=== PATIENT | female | born 1945 | race Caucasian/White ===

== ENCOUNTER → 2016-11-30 | Outpatient (CLI) | payer OTHER, MEDICAID ==
--- NOTE | 2016-11-30 14:11 | MR ---
MRI of the Head Clinical Indication: Seizures, G40.909 Technique: T1-weighted images were acquired axially and sagittally from the foramen magnum to the ve rtex. Fast inversion recovery, fast T2-weighted, and diffusion-weighted axial images were obtained. Comparison: MRI December 18, [address] August 30, 2016 Findings: There is a new 4.5 mm T2 hyperintense , isovolumic, lesion involving the lateral anterior insular cortex of the left temporal lobe (image 9., Series 7). A few other microvascular ischemic changes in the supratentorium are stable and no oth er new lesions are identified. The posterior fossa remains normal. No hemorrhage, mass lesion or acute infarction. Ventricles and subarachnoid spaces are normal. Appr opriate voids of signal are found within the major vessels of the [place]. Contents of the posterior fossa are nicely displayed and are normal. No fluid in the paranasal sinuses. The cranioc ervical junction is normal. Impression: New small, nonspecific, left insular cortex lesion. This is in an atypical position for t he typical microvascular ischemic change seen in elderly patients. Recommend MRI with IV contrast and MRA for further evaluation.
== END ==
LOC: FIMAGING 13:05
PROVIDERS: ATTEND Psychiatry & Neurology Neurology
DX: G40.909 Epilepsy, unspecified, not intractable, without status epilepticus (principal)

== ENCOUNTER → 2016-12-11 | Outpatient (CLI) | payer OTHER, MEDICAID ==
[~2016-12-11] MED LIST: GADOBUTROL 10 ML VIAL IVP ONE
[2016-12-11 10:38] LABS: CREATININE 0.7 mg/dL (0.6-1.0); GLOMERULAR FILTRATION RATE > 60
--- NOTE | 2016-12-11 14:29 | MR ---
MRI Brain Postcontrast History: Focal left insular white matter lesion. Technique: After intravenous administration of 6 mL Gadavist, postcontrast enhanced imaging is obtain ed in three planes. Comparison Study: November 30, 2016. Findings: After contrast administration, the brain enhances unremarkably. Specifically, the white mat ter lesion within the left temporal lobe white matter does not enhance abnormally suggesting this may represent a focal area of microvascular ischemic gliosis. No masses. No intracranial hemorrhage. Impression: The brain enhances normally after intravenous contrast administration. The left temporal white matter lesion most likely represents an additional focus of white matter microvascular ischemic disease.
== END ==
LOC: FIMAGING 09:48
PROVIDERS: ATTEND Psychiatry & Neurology Neurology
DX: R90.82 White matter disease, unspecified (principal)
CPT/HCPCS: 70552; A9585

== ENCOUNTER → 2016-12-30 | Outpatient (CLI) | payer OTHER ==
--- NOTE | 2016-12-30 16:29 | MR ---
MRI of the Lumbar Spine (Without Contrast) at 1424 hours Clinical Indications: Back pain, left leg radiculopathy. M54.5. Technique: Sagittal and axial T1 and T2 and sagittal STIR MR sequences of the lumbar spine without co ntrast. Axial imaging from T10 through S1. Findings: Lumbar vertebral bodies are of normal height without compression fractures. Conus medulla ris appears normal and ends at L1-L2. T10-T11: Severe degenerative disk disease, circumferential disk bulge and osteophytes and mild bilate ral facet arthropathy resulting in mild central canal stenosis and mild to moderate right neural fora lenin stenosis. T11-T12: Severe degenerative disk disease with circumferential disk bulge and osteophytes and moderat e bilateral facet arthropathy resulting in moderate central canal stenosis and mild to moderate right neural foraminal stenosis. T12-L1: Severe degenerative disk disease with endplate diskogenic changes, circumferential disk bulge and osteophytes and moderate bilateral facet arthropathy resulting in mild central canal stenosis an d mild to moderate left neural foraminal stenosis. L1-L2: Mild degenerative disk disease, mild disk bulge and moderate bilateral facet arthropathy witho ut central canal or neural foraminal stenosis. L2-L3: Moderate degenerative disk disease, circumferential disk bulge, moderate loss of disk height, and moderate bilateral facet arthropathy resulting in mild central canal stenosis without neural fora lenin stenosis. L3-L4: Severe degenerative disk disease, moderate loss of disk height, severe bilateral facet arthrop athy, degenerative grade 1 anterolisthesis, circumferential disk bulge and osteophytes, resulting in moderate to severe central canal stenosis and mild to moderate bilateral neural foraminal stenosis. L4-L5: Severe degenerative disk disease with endplate diskogenic changes, severe loss of disk height, circumferential disk bulge and osteophytes and severe bilateral facet arthropathy resulting in moder ate central canal stenosis and moderate to severe right neural foraminal stenosis. L5-S1: Severe degenerative disk disease, moderate loss of disk height, endplate diskogenic changes, s evere bilateral facet arthropathy, degenerative grade 1 anterolisthesis 5 mm, circumferential disk bu lge, resulting in moderate to severe bilateral neural foraminal stenosis and mild central canal steno sis. Impression: 1. Multilevel moderate to severe degenerative disk disease from T10-T11 through L5-S1 with associated disk bulge and osteophytes and multilevel moderate to severe bilateral neural foraminal stenosis res ulting in mild to moderate central canal stenosis from T10-T11 through T12-L1, and moderate to severe central canal stenosis at L3-L4 and L4-L5, with multilevel variable bilateral neural foraminal steno sis, worst at the L5-S1 level. 2. L5-S1 degenerative grade 1 anterolisthesis, severe degenerative disk disease and severe bilateral facet arthropathy resulting in moderate to severe bilateral neural foraminal stenosis and mild centra l canal stenosis. 3. L3-L4 and L4-L5 moderate to severe central canal stenosis secondary to severe degenerative disk di sease with disk bulge and osteophytes and bilateral facet arthropathy with superimposed degenerative anterolisthesis at L3-L4 and degenerative retrolisthesis at L4-L5. 4. Consider flexion and extension lateral plain film views to rule out instability. 5. Please see above findings at specific disk levels.
== END ==
LOC: FIMAGING 13:58
PROVIDERS: ATTEND Physician Assistant Medical
DX: M54.5 Low back pain (principal); M79.605 Pain in left leg; M51.34 Other intervertebral disc degeneration, thoracic region; M51.37 Other intervertebral disc degeneration, lumbosacral region; M48.05 Spinal stenosis, thoracolumbar region; M48.06 Spinal stenosis, lumbar region; M43.17 Spondylolisthesis, lumbosacral region; M25.78 Osteophyte, vertebrae

== ENCOUNTER → 2017-06-29 | Outpatient (CLI) | payer OTHER | LOC: FIMAGING 09:32 | PROVIDERS: ATTEND Neurological Surgery | DX: M43.17 Spondylolisthesis, lumbosacral region (principal); M51.36 Other intervertebral disc degeneration, lumbar region; M51.37 Other intervertebral disc degeneration, lumbosacral region; M48.06 Spinal stenosis, lumbar region; M99.73 Connective tissue and disc stenosis of intervertebral foramina of lumbar region ==

== ENCOUNTER 2017-08-03 09:58 | Day surgery (SDC) | payer OTHER ==
[2017-08-03] MEDS ORDERED: LIDOCAINE 1% 300 MG/30 ML SDV SC ONE (10:04)
--- NOTE | 2017-08-03 10:54 | PDGENHP ---
History & Physical Chief Complaint: Linq removal. History of Present Illness: LINQ placed given history of syncope. Ultimately diagnosed with a seizure disorder. Pertinent Past, Social, Family History: None. Relevant Physical Exam: RRR no MGR. Lungs clear
--- NOTE | 2017-08-03 12:41 | CPIP ---
[f rep st] INVASIVE CARDIAC PROCEDURE DATE OF PROCEDURE: 08/03/2017 INDICATIONS: The patient is 72 years old and has a history of syncope. She had a LINQ placed in past, given her history of cryptogenic syncope. Recently, she was diagnosed with a seizure disord er as the etiology for her syncope. As a result, she is referred for a LINQ removal. PROCEDURE: Removal of a [employer]tronic LINQ. TECHNIQUE: Following informed consent, and in the fasting state, the patient was brought to the C[facility] . The left chest was prepped and draped in usual sterile fashion. 1% lidocaine was infiltrated in the skin overlying the previously placed LINQ. Using the 15 blade, a 1 cm incision was made. The L INQ was identified. The capsule was opened sharply, and the LINQ delivered from the pocket. Two st aples were placed to close the skin. Manual pressure was held, and a dry dressing was placed. COMPLICATIONS: None. DISPOSITION: The patient will be recovered in the CVC and discharged home later today. /[id number]/MODL
== END 2017-08-03 11:30 | disposition home or self-care (01) ==
LOC: FCATH 09:58
PROVIDERS: ATTEND Internal Medicine Cardiovascular Disease
PROC: 0JPT02Z Removal of Monitoring Device from Trunk Subcutaneous Tissue and Fascia, Open Approach (ICD-10-PCS; principal; 2017-08-03)
DX: Z45.09 Encounter for adjustment and management of other cardiac device (principal); R55 Syncope and collapse; G40.909 Epilepsy, unspecified, not intractable, without status epilepticus

== ENCOUNTER 2017-08-12 05:46 | Inpatient (IN) | payer OTHER ==
[2017-08-12] MEDS ORDERED: morphINE PF 5 MG/10 ML INJ IT ONE (06:05)
[2017-08-12] MEDS ORDERED: ceFAZolin 2 GM/DEXTROSE 100 ML IV ONE (06:05)
[2017-08-12] MEDS ORDERED: morphINE SR 15 MG TAB PO ONE (06:05)
[2017-08-12] MEDS ORDERED: ACETAMINOPHEN 500 MG TAB PO ONE (06:05)
[2017-08-12] MEDS ORDERED: GABAPENTIN 300 MG CAP PO ONE (06:05)
[2017-08-12] MEDS ORDERED: LR 1,000 ML IV ONE (06:06)
[2017-08-12] MEDS ORDERED: LIDOCAINE 1% 2 ML INJ ID PRN (06:06)
[2017-08-12] MEDS ORDERED: CITRATE DEXTROSE SOLN 500 ML BAG ONE ×2 (06:39→07:58)
[2017-08-12] MEDS ORDERED: BUPIVACAINE 0.25% 30 ML SDV ONE (06:39)
[2017-08-12] MEDS ORDERED: THROMBIN (BOVINE) 20,000 UNIT VIAL TP ONE (06:41)
[2017-08-12] MEDS ORDERED: CHLORHEXIDINE GLUC HIBICLENS 118 ML BTL TP ONE (06:41)
[2017-08-12] MEDS ORDERED: BACITRACIN 50,000 UNITS/10 ML SYR IRR ONE (06:42)
--- NOTE | 2017-08-12 06:58 | PDHPUP ---
History & Physical Update H&P update statement: This history and physical update is based on an assessment of the patient which was completed after admission or registration (within 24 hours), but prior to the surgery/procedure. H&P update: H&P reviewed & patient examined, no change in patient's condition since H&P completed (Consents signed and site marked for surgery.)
[2017-08-12] MEDS ORDERED: DEXAMETHASONE 4 MG/ML VIAL ONE (07:02)
[2017-08-12] MEDS ORDERED: MIDAZOLAM 2 MG/2 ML VIAL ONE (07:02)
[2017-08-12] MEDS ORDERED: ROCURONIUM 50 MG/5 ML VIAL ONE (07:02)
[2017-08-12] MEDS ORDERED: PROPOFOL/EMULSION 500 MG/50 ML BOTTLE IV ONE ×2 (07:02→09:24)
[2017-08-12] MEDS ORDERED: LIDOCAINE 2% 100 MG/5 ML SYR ONE (07:03)
--- NOTE | 2017-08-12 08:23 | PDANEPAE ---
ANE Past Medical History - Cardiovascular History Hx Hypertension: No Hx Arrhythmias: No Hx Chest Pain: No Hx Coronary Artery / Peripheral Vascular Disease: No Hx CHF / Valvular Disease: No Hx Palpitations: No Cardiovascular History Comment: HAD [employer] LOOP RECORDER. PLACED 05/2016 PLANS ON GETTING REMOVED - Pulmonary History Hx COPD: No Hx Asthma/Reactive Airway Disease: No Hx Recent Upper Respiratory Infection: No Hx Oxygen in Use at Home: No Hx Sleep Apnea: No Sleep Apnea Screening Result - Last Documented: Negative - Neurologic History Hx Seizures: Yes Neurologic History Comment: ELIPEPSY - Endocrine History Hx Diabetes: No - Renal History Hx Renal Disorders: Yes Renal History Comment: STRESS INCONT.USES PADS - Liver History Hx Hepatic Disorders: No - Neurological & Psychiatric Hx Hx Neurological and Psychiatric Disorders: No - Cancer History Hx Cancer: No - Congenital Disorder History Hx Congenital Disorders: No - GI History Hx Gastrointestinal Disorders: No - Other Health History Other Health History: PERIPHERAL NEUROPATHY. LUMBAR STENOSIS - Chronic Pain History Chronic Pain: Yes (LT BUTTOCKS DOWN TO ANKLE) - Surgical History Prior Surgeries: BRO CATARACT. LT SHLDR SCOPE. RT KNEE SCOPE. HYSTERECTOMY. LT ANKLE ORIF. TONSILLECTOMY ANE Review of Systems Review of Systems: - Exercise capacity METS (RN): 6 METS - Pacemaker Pacemaker Mode: DVI ANE Patient History - Allergies Allergies/Adverse Reactions: No Known Allergies Allergy (Verified 07/30/17 16:51) - Home Medications Home Medications: DULoxetine [Cymbalta 30 MG (*)] 30 mg PO BID 06/08/16 [Last Taken 08/12/17] Herbals/Supplements -Info Only 1 ea PO DAILY 06/08/16 [Last Taken 08/05/17] levETIRAcetam [Keppra Xr] 1,000 mg PO DAILY 09/03/16 [Last Taken 08/12/17] Ascorbic Acid [Vitamin C 500 mg (*)] 1,000 mg PO DAILY 07/15/17 [Last Taken 06/14] Docusate Sodium [Stool Softener] 50 mg PO HS 07/15/17 [Last Taken 08/10/17] Multivitamin with Minerals [Multiple Vitamin] 1 each PO DAILY 07/15/17 [Last Taken 08/05/17] Montgomery-3 Fatty Acids [Fish Oil 1000 mg (*)] 1,000 mg PO DAILY 07/15/17 [Last Taken 08/05/17] lamoTRIgine [LamICTAL 100 MG (*)] 100 mg PO DAILY 07/15/17 [Last Taken 08/12/17] levETIRACETAM [Keppra Xr] 500 mg PO HS 07/15/17 [Last Taken 08/12/17] traMADol [Ultram 50 mg (*)] 50 mg PO BID@16,21 PRN 07/15/17 [Last Taken 08/08/17 ] - NPO status NPO Since - Liquids (Date): 08/11/17 NPO Since - Liquids (Time): 20:00 NPO Since - Solids (Date): 08/11/17 NPO Since - Solids (Time): 20:00 - Smoking Hx Smoking Status: Never smoked ANE Labs/Vital Signs - Vital Signs Blood Pressure: 113/74 Heart Rate: 64 Respiratory Rate: 16 O2 Sat (%): 97 Height: 165.1 cm Weight: 62.596 kg ANE Physical Exam - Airway Neck exam: FROM Mallampati Score: Class 2 Mouth exam: normal dental/mouth exam - Pulmonary Pulmonary: no respiratory distress - Cardiovascular Cardiovascular: regular rate and rhythym - ASA Status ASA Status: II (right handed, allens 3-5 seconds) ANE Anesthesia Plan Anesthesia Plan: general endotracheal anesthesia Lines/Monitors: arterial line Urgent/Emergent Case: Radha noyola completed preop but documented later for safe timely pt care (JERMAIN discussed as risk)
[2017-08-12] MEDS ORDERED: SUGAMMADEX SODIUM 200 MG/2 ML VIAL IVP ONE (11:14)
[2017-08-12] MEDS ORDERED: NALOXONE HCL 0.4 MG/ML INJ IVP PRN (12:10)
[2017-08-12] MEDS ORDERED: MEPERIDINE 25 MG/ML SYR IVP PRN (12:10)
[2017-08-12] MEDS ORDERED: ALBUTEROL 3 ML DEYVIAL IH PRN (12:10)
[2017-08-12] MEDS ORDERED: ONDANSETRON 4 MG/2 ML VIAL IVP PRN ×2 (12:10→12:39)
[2017-08-12] MEDS ORDERED: LR 500 ML IV PRN (12:10)
--- NOTE | 2017-08-12 12:10 | POSTANESTH ---
Post Anesthetic Evaluation Cardiovascular Status: Normal, Stable Respiratory Status: Normal, Stable Level of Consciousness/Mental Status: Can Participate in Eval Pain Control: Adequate, Prn Tx Ordered Nausea/Vomiting Control: Adequate, Prn Tx Ordered Complications Possibly Related to Anesthesia: None Noted
[2017-08-12] MEDS ORDERED: fentaNYL 100 MCG/2 ML INJ ONE ×2 (12:15→12:33)
[2017-08-12] MEDS: fentaNYL 100 MCG/2 ML INJ IVP PRN ×4 (12:18→12:49)
[2017-08-12] MEDS ORDERED: diphenhydrAMINE 25 MG CAP PO PRN (12:39)
[2017-08-12] MEDS ORDERED: MAGNESIUM HYDROXIDE 30 ML UDCUP PO PRN (12:39)
[2017-08-12] MEDS ORDERED: BISACODYL 10 MG SUPP PR PRN (12:39)
[2017-08-12] MEDS ORDERED: PROMETHAZINE HCL 25 MG/ML INJ IVP PRN (12:39)
[2017-08-12] MEDS ORDERED: ONDANSETRON DISINTEGRATING 4 MG TAB PO PRN (12:39)
[2017-08-12] MEDS ORDERED: DIAZEPAM 10 MG/2 ML SYR IVP PRN (12:39)
[2017-08-12] MEDS ORDERED: POLYETHYLENE GLYCOL 3350 17 GM PKT PO PRN (12:39)
[2017-08-12] MEDS ORDERED: LACTULOSE 20 GM/30 ML UDCUP PO PRN (12:39)
--- NOTE | 2017-08-12 12:47 | POSTOPPROG ---
Post Op Note Date of Operation: 08/12/17 Surgeon: Atul Jordan Educational Consultant: Nixon Lewis PA-C Anesthesiologist: Pia Anesthesia: GET(General Endotracheal) Pre-op Diagnosis: lumbar stenosis Post-op Diagnosis: same Indication: nerve compression Procedure: L3-5 laminectomy, L3/4/5/S1 TLIFs, L3-S1 posterior fusion Findings: Please see dictation Inf/Abcess present in the surg proc area at time of surgery?: No Depth: Organ Space EBL: 100-500 Complications: none Drains: Rafiq Irvin Specimen(s): none PA Addendum - Addendum .: S: Pt resting in bed, c/o back pain and spasms O: Awake but groggy NAD VSS MAEx4 Motor 5/5 BUE/BLE with exception of L DF/PF 5-/5 poor effort Incision dressed cdi JPx1 Fierro A: 72 yo F s/p L3-5 laminectomy, L3/4/5/S1 TLIFs, L3-S1 posterior fusion P: PT/OT TEDs, SCDS, lovenox POD#1 Pain management Brace when OOB Post op xrays pending SURAJ fierro in AM Follow KENTRELL output Call NS with any issues D/w Dr Jordan
[2017-08-12] MEDS: NS 1,000 ML IV SCH (14:32)
[2017-08-12] MEDS: ceFAZolin 2 GM/DEXTROSE 100 ML IV SCH ×2 (14:35→21:10)
[2017-08-12] MEDS: ACETAMINOPHEN 500 MG TAB PO SCH ×2 (14:41→21:08)
--- NOTE | 2017-08-12 14:46 | GOP ---
[f rep st] OPERATIVE REPORT DATE OF OPERATION: 08/12/2017 SURGEON: Atul Jordan MD ANDROID DEVELOPER: MIMI Carpio. PREOPERATIVE DIAGNOSIS: 1. L3 through S1 lumbar spondylosis, with severe spinal stenosis at L3 through L5. 2. Lateral recess and foraminal stenosis, left-sided at L3-L4, L4-L5, and L5- S1. 3. Low back pain. 4. Lower extremity radiculopathy and weakness. 5. Treatment refractory to nonoperative intervention. POSTOPERATIVE DIAGNOSIS: 1. L3 through S1 lumbar spondylosis, with severe spinal stenosis at L3 through L5. 2. Lateral recess and foraminal stenosis, left-sided at L3-L4, L4-L5, and L5- S1. 3. Low back pain. 4. Lower extremity radiculopathy and weakness. 5. Treatment refractory to nonoperative intervention. 6. Duplicate left-sided L5 nerve. PROCEDURE PERFORMED: 1. Posterior arthrodesis with approach to L3, L4, L5, and S1. 2. Posterolateral fusion with bilateral pedicle screw placement into L3, L4, L5 , and S1 from the StarsVu 4.75 system. 3. Posterolateral fusion on the right between L3 and S1, with morselized autograft and allograft. 4. Decompressive laminectomy with bilateral medial facetectomies at L3-L4 and L4-L5. 5. Left-sided L5-S1 facetectomy with foraminotomy and nerve root decompression. 6. Right-sided L5-S1 hemilaminotomy with facetectomy, foraminotomy, and nerve root decompression. 7. Left-sided L3-L4 transforaminal lumbar interbody fusion with a 7 x 23 mm titanium PEEK elevate cage filled with morselized autograft and allograft. 8. Left-sided L4-L5 transforaminal lumbar interbody fusion with a 7 x 22 mm titanium-coated PEEK cage filled with morselized autograft and allograft. 9. Right-sided L5-S1 transforaminal lumbar interbody fusion with a 7 x 23 mm titanium PEEK elevated cage filled with morselized autograft and allograft. 10. Use of intraoperative 3D Stealth navigation. 11. Use of intraoperative fluoroscopy, less than 1 hour physician time. 12. Use of neuromonitoring. 13. Use of the operating microscope. 14. Injection of preservative-free intrathecal narcotics. FINDINGS: per imaging with a duplicate nerve at the left L5/S1 foramen SPECIMENS: None. INDICATIONS: The patient is a 72-year-old woman who, unfortunately, was suffering a left lower extremity radiculopathy and had evidence of weakness. She had evidence of spondylosis, with severe spinal stenosis L3 through L5, and severe bilateral lateral recess foraminal stenosis at L5-S1. After failing nonoperative interventions, after discussion of risks, benefits, and treatment alternatives, we decided to proceed forth with surgery as described above. DESCRIPTION OF PROCEDURE: The patient was brought to the operating theater and underwent general endotracheal anesthesia without complications. She had Venodynes, RICO hose, and appropriate lines placed by Anesthesia. She was flipped prone onto the Rafiq table, and all bony processes inspected and padded. The lower lumbar region was prepped and draped in the usual sterile surgical fashion. A time-out was completed per protocol, and the patient received antibiotics within 1 hour of incision. Using lateral fluoroscopy and a spinal needle, we picked our entry point to the L3 through S1 levels. This was marked in the midline, and the incision was infiltrated with Marcaine with epinephrine. The incision was taken down with the scalpel blade and, using the monopolar, taken down the midline through the lumbar dorsal fascia, and subperiosteal dissection carried out to the transverse process of L3, L4, L5, and S1 bilaterally. Care was taken to preserve the L2-3 facet joint. Deep retractors placed to maintain our exposure. We attached the 3D Stealth navigation clamp to the spinous process of L5 and completed a 3D Stealth navigation spin. Using 3D Stealth navigation, we placed pilot boat deckhand holes for the bilateral pedicle screws into L3, L4, L5, and S1. All holes were manually palpated with evidence of any cortical breaches. We then tapped and placed 6.5 x 55 mm screws bilaterally at L3 and L4, and 6.5 x 50 mm screws bilaterally in L5, and 6.5 x 35 mm screws bilaterally in S1. Another 3D Stealth navigation spin demonstrated good placement of the hardware. At this point, we used a combination of the bur tip on the drill bit, Kerrison punches, and Leksell rongeur to complete a decompressive laminectomy with bilateral medial facetectomies, L3-L4 and L4-L5. We resected the pars on the left side between L3-4, L4-5, and also completed a left-sided L5-S1 hemilaminotomy with facetectomy. When we resected the pars and facet on the left side off L5-S1, we noted the patient had likely a duplicate nerve, and therefore we were not going to be able to complete the TLIF from this side and acces the discectomy. I therefore completed a right-sided L5-S1 hemilaminotomy with facetectomy and foraminotomy. We moved up to the left-sided L3-4 level, where we completed a left-sided L3-4 diskectomy. We prepared the cartilaginous endplates and measured interbody space. We then placed a 7 x 23 mm titanium PEEK elevate cage filled with morselized autograft and allograft, anteriorly toward the midline. We packed additional morselized autograft into the disk space for the interbody fusion, and then moved down to L4-5, where we completed a left-sided L4-5 diskectomy. We prepared the cartilaginous endplates and measured interbody space. We then placed a 7 x 22 mm titanium-coated PEEK cage filled with morselized autograft and allograft anteriorly toward the midline. We packed additional morselized autograft into the disk space interbody fusion. We then moved on to L5-S1 and moved to the right side, where we completed a right-sided L5-S1 diskectomy. We prepared the cartilaginous endplates and measured the interbody space. We placed a 7 x 23 mm titanium PEEK elevate cage filled with morselized autograft and allograft anteriorly toward the midline. We packed additional morselized autograft into the disk space for the interbody fusion. We decorticated the bone on the right side, between L3 and S1 for the posterolateral fusion. We injected preservative-free intrathecal narcotics and left a drain in the subfascial space. The wound was then closed in multiple layers, using Vicryl sutures in deep layers, and Dermabond for the skin. The patient's wounds were dressed sterilely. She was flipped supine onto the transfer cart. She was awakened, extubated, and taken to the recovery room in stable condition. There were no complications and no noted changes on neuromonitoring throughout the procedure. COMPLICATIONS: None. /[id number]/MODL MTDD
[2017-08-12] MEDS: oxyCODONE IR 5 MG TAB PO PRN (16:00)
[2017-08-12] MEDS: POLYETHYLENE GLYCOL 3350 17 GM PKT PO SCH ×2 (16:19→21:19)
[2017-08-12] MEDS: FAMOTIDINE 20 MG TAB PO SCH (21:08)
[2017-08-12] MEDS: SENNOSIDES/DOCUSATE SODIUM TAB PO SCH (21:08)
[2017-08-12] MEDS: levETIRAcetam 500 MG TAB PO SCH (21:09)
[2017-08-12] MEDS: DULoxetine 30 MG CAP PO SCH (21:09)
[2017-08-12] MEDS: DOCUSATE SODIUM 100 MG CAP PO SCH (21:18)
[2017-08-13] MEDS ORDERED: NS BOLUS 500 ML (Wide open) IV ONE (01:00)
[2017-08-13] MEDS: oxyCODONE IR 5 MG TAB PO PRN ×4 (04:18→21:20)
[2017-08-13] MEDS: METHOCARBAMOL 750 MG TAB PO PRN ×3 (04:19→15:47)
[2017-08-13] MEDS: ACETAMINOPHEN 500 MG TAB PO SCH ×3 (05:24→21:20)
[2017-08-13] MEDS: NS 1,000 ML IV SCH (05:29)
--- NOTE | 2017-08-13 07:40 | NEUSURGPN ---
Date of Surgery: 08/12/17 Post Op Day: 1 Assessment/Plan: A: 72 yo F s/p L3-5 laminectomy, L3/4/5/S1 TLIFs, L3-S1 posterior fusion P: PT/OT TEDs, SCDS, lovenox to begin today Pain management - continue current regimen Brace when OOB Post op xrays pending Hernandez is out Follow KENTRELL output - productive, leave in place today Call NS with any issues Pt seen and D/w Dr Jordan Subjective: Pt resting in bed, had a lot of leg pain overnight. Objective: AAOx3 NAD VSS MAEx4 Motor 5/5 BLE Incision dressed cdi KENTRELL drain with bloody dc in line/bulb +LT SCDs and TEDs on Urinary Catheter in Place: No - Physician Discussed Patient with Dr.: Julian Patient Seen by : Julian Neurosurgery Physical Exam - Vitals, I&O, Labs I and O 08/12/17 08/13/17 08/14/17 05:59 05:59 05:59 Intake Total 4555 Output Total 2760 Balance 1795 Weight 62.596 kg Intake: Oral (ml) 405 IV Intake (ml) 3950 IV Infused (ml) 200 ceFAZolin 2 GM/DEXTROSE 200 100 ml @ 200 mls/hr IV ONCALL ONE Rx#:[id number] Output: Urine (ml) 1870 Catheter 1870 Estimated Blood Loss (ml) 450 KENTRELL Drain Output (ml) 440 Left Back Rafiq Irvin 440 Vital Signs Temp Pulse Resp BP Pulse Ox 37.4 C 73 12 81/47 L 98 08/13/17 07:31 08/13/17 07:31 08/13/17 07:31 08/13/17 07:31 08/13/17 07:31 ICD10 Worksheet Patient Problems: Problems Problem Status Onset History of seizure Acute Syncope and collapse Acute
[2017-08-13] MEDS: FAMOTIDINE 20 MG TAB PO SCH ×2 (08:16→21:21)
[2017-08-13] MEDS: ASCORBIC ACID 500 MG TAB PO SCH (08:16)
[2017-08-13] MEDS: levETIRAcetam 500 MG TAB PO SCH ×2 (08:16→21:21)
[2017-08-13] MEDS: lamoTRIgine 100 MG TAB PO SCH (08:16)
[2017-08-13] MEDS: DULoxetine 30 MG CAP PO SCH ×2 (08:16→21:19)
[2017-08-13] MEDS: SENNOSIDES/DOCUSATE SODIUM TAB PO SCH ×2 (08:17→21:19)
[2017-08-13] MEDS: POLYETHYLENE GLYCOL 3350 17 GM PKT PO SCH ×2 (08:17→15:57)
[2017-08-13] MEDS: ENOXAPARIN 40 MG/0.4 ML SYR SC SCH (08:17)
--- NOTE | 2017-08-13 14:26 | ASMTCMCOM ---
CM Note CM Note Notes: Spoke with Veronica Carlin regarding referral for pt to have inpatient rehab. Patient being considered for acceptance but no decision will be made until Wednesday. CM to follow. Date Signed: 08/13/2017 02:25 PM Electronically Signed By:Verenice Lewis RN
--- NOTE | 2017-08-13 15:55 | ASMTCMCOM ---
CM Note CM Note Notes: Met with patient to review discharge POC. Patient informed that [facility] inpatient rehab reviewing her status, alternate rehab discussed and patient chooses [facility] Referal to [place] at [facility], patient accepted to facilty when medically able to discharge. PASRR complete and faxed to [facility]. If remains through will f/u with [facility]. CM to follow as needs arise. Date Signed: 08/13/2017 03:55 PM Electronically Signed By:Verenice Lewis RN
[2017-08-13] MEDS: DOCUSATE SODIUM 100 MG CAP PO SCH (22:09)
[2017-08-14] MEDS: POLYETHYLENE GLYCOL 3350 17 GM PKT PO SCH ×4 (00:23→21:56)
[2017-08-14] MEDS: oxyCODONE IR 5 MG TAB PO PRN ×5 (04:27→22:28)
[2017-08-14] MEDS: METHOCARBAMOL 750 MG TAB PO PRN ×4 (04:28→18:21)
[2017-08-14] MEDS: ACETAMINOPHEN 500 MG TAB PO SCH ×3 (06:00→21:56)
--- NOTE | 2017-08-14 08:20 | NEUSURGPN ---
Assessment/Plan: A: 72 yo F s/p L3-5 laminectomy, L3/4/5/S1 TLIFs, L3-S1 posterior fusion P: PT/OT TEDs, SCDS, lovenox Pain management - continue current regimen Brace when OOB Post op xrays pending Follow KENTRELL output - productive, leave in place this morning, may d/c later today Call NS with any issues manager deli consult for rehab vs SNF placement Subjective: low back pain, denies any new leg pain, numbness or tingling Objective: NAD A&Ox3 NAEx4 5/ and equal in BUE and BLE. Incision c/d/i - Physician Discussed Patient with Dr.: Americo Neurosurgery Physical Exam - Vitals, I&O, Labs I and O 08/13/17 08/14/17 08/15/17 05:59 05:59 05:59 Intake Total 4555 150 Output Total 2760 205 Balance 1795 -55 Weight 62.596 kg Intake: Oral (ml) 405 150 IV Intake (ml) 3950 IV Infused (ml) 200 ceFAZolin 2 GM/DEXTROSE 200 100 ml @ 200 mls/hr IV ONCALL ONE Rx#:[id number] Output: Urine (ml) 1870 Catheter 1870 Estimated Blood Loss (ml) 450 KENTRELL Drain Output (ml) 440 205 Left Back Rafiq Irvin 440 205 Other: Intake Quantity Yes Sufficient Number of Voids Catheter 2 Vital Signs Temp Pulse Resp BP Pulse Ox 37.0 C 79 18 109/70 97 08/14/17 05:09 08/14/17 05:09 08/14/17 05:09 08/14/17 05:09 08/14/17 05:09 ICD10 Worksheet Patient Problems: Problems Problem Status Onset History of seizure Acute Syncope and collapse Acute
[2017-08-14] MEDS: DULoxetine 30 MG CAP PO SCH ×2 (09:21→21:56)
[2017-08-14] MEDS: ASCORBIC ACID 500 MG TAB PO SCH (09:21)
[2017-08-14] MEDS: SENNOSIDES/DOCUSATE SODIUM TAB PO SCH ×2 (09:21→21:56)
[2017-08-14] MEDS: ENOXAPARIN 40 MG/0.4 ML SYR SC SCH (09:22)
[2017-08-14] MEDS: levETIRAcetam 500 MG TAB PO SCH ×2 (09:23→21:57)
[2017-08-14] MEDS: lamoTRIgine 100 MG TAB PO SCH (09:23)
[2017-08-14] MEDS: FAMOTIDINE 20 MG TAB PO SCH ×2 (09:24→21:57)
[2017-08-14] MEDS: DOCUSATE SODIUM 100 MG CAP PO SCH (21:56)
[2017-08-15] MEDS: oxyCODONE IR 5 MG TAB PO PRN ×4 (03:51→21:13)
[2017-08-15] MEDS: ACETAMINOPHEN 500 MG TAB PO SCH ×3 (06:09→21:13)
[2017-08-15] MEDS: ENOXAPARIN 40 MG/0.4 ML SYR SC SCH (09:02)
[2017-08-15] MEDS: DULoxetine 30 MG CAP PO SCH ×2 (09:03→21:14)
[2017-08-15] MEDS: levETIRAcetam 500 MG TAB PO SCH ×2 (09:03→21:14)
[2017-08-15] MEDS: lamoTRIgine 100 MG TAB PO SCH (09:03)
[2017-08-15] MEDS: ASCORBIC ACID 500 MG TAB PO SCH (09:03)
[2017-08-15] MEDS: SENNOSIDES/DOCUSATE SODIUM TAB PO SCH ×2 (09:03→22:28)
[2017-08-15] MEDS: FAMOTIDINE 20 MG TAB PO SCH ×2 (09:03→21:13)
[2017-08-15] MEDS: POLYETHYLENE GLYCOL 3350 17 GM PKT PO SCH ×3 (09:04→22:27)
[2017-08-15] MEDS: METHOCARBAMOL 750 MG TAB PO PRN ×2 (09:14→15:31)
--- NOTE | 2017-08-15 09:57 | NEUSURGPN ---
Assessment/Plan: A: 72 yo F s/p L3-5 laminectomy, L3/4/5/S1 TLIFs, L3-S1 posterior fusion P: PT/OT TEDs, SCDS, lovenox Pain management - continue current regimen Brace when OOB Post op xrays demonstrate intact hardware Discontinue KENTRELL drain today Call NS with any issues bowling floor manager consult for rehab vs SNF placement, patient will likely be ready to transfer tomorrow Subjective: low back pain and anterior thigh numbness Objective: NAD A&Ox3 MAEx4 5/5 and equal in BUE and BLE. Incision c/d/i - Physician Discussed Patient with : Julian Neurosurgery Physical Exam - Vitals, I&O, Labs I and O 08/14/17 08/15/17 08/16/17 05:59 05:59 05:59 Intake Total 150 700 Output Total 205 100 Balance -55 600 Intake: Oral (ml) 150 700 Output: KENTRELL Drain Output (ml) 205 100 Left Back Rafiq Irvin 205 100 Other: Intake Quantity Yes Yes Sufficient Number of Voids Catheter 2 1 Vital Signs Temp Pulse Resp BP Pulse Ox 37.3 C 81 18 118/71 91 L 08/15/17 08:00 08/15/17 08:00 08/15/17 08:00 08/15/17 08:00 08/15/17 08:00 ICD10 Worksheet Patient Problems: Problems Problem Status Onset History of seizure Acute Syncope and collapse Acute
[2017-08-15] MEDS: DOCUSATE SODIUM 100 MG CAP PO SCH (22:26)
[2017-08-16] MEDS: METHOCARBAMOL 750 MG TAB PO PRN (02:23)
[2017-08-16] MEDS: oxyCODONE IR 5 MG TAB PO PRN ×3 (02:23→12:33)
[2017-08-16 05:35] VITALS: O2SAT 92
[2017-08-16] MEDS: ACETAMINOPHEN 500 MG TAB PO SCH (06:19)
[2017-08-16 07:46] VITALS: BP 101/69; PULSE 76; RESP 16; TEMP 98.9
--- NOTE | 2017-08-16 08:00 | NEUSURGPN ---
Date of Surgery: 08/12/17 Post Op Day: 4 Assessment/Plan: Assessment: 72 yo F s/p L3-5 laminectomy, L3/4/5/S1 TLIFs, L3-S1 posterior fusion Plan: -PT/OT-CPM -TEDs, SCDS, lovenox -Pain management - continue current regimen -Brace when OOB -Post op xrays demonstrate intact hardware -KENTRELL removed already -Call NS with any issues -enterprise systems manager consult for rehab vs SNF placement, patient will likely be ready to transfer today pending acceptance Subjective: Awake and alert. NAD. Eating/drinking and voiding. No sellers/neck/chest/abd or gu complaints. No f/c/n/v/d. Objective: NAD A&Ox3 MAEx4 5 and equal in BUE and BLE. Incision c/d/i Neuro Check Frequency: per routine Urinary Catheter in Place: No - Physician Discussed Patient with : [facility] Physical Exam - Vitals, I&O, Labs I and O 08/15/17 08/16/17 08/17/17 05:59 05:59 05:59 Intake Total 700 700 Output Total 100 11 Balance 600 689 Intake: Oral (ml) 700 700 Output: Urine (ml) 1 Toilet 1 KENTRELL Drain Output (ml) 100 10 Left Back Rafiq Irvin 100 10 Other: Intake Quantity Yes Yes Sufficient Number of Voids Catheter 1 Toilet 2 Number of Stools Toilet 1 Vital Signs Temp Pulse Resp BP Pulse Ox 37.2 C 76 16 101/69 92 08/16/17 07:44 08/16/17 07:44 08/16/17 07:44 08/16/17 07:44 08/16/17 07:44 ICD10 Worksheet Patient Problems: Problems Problem Status Onset History of seizure Acute Syncope and collapse Acute
[2017-08-16] MEDS: ASCORBIC ACID 500 MG TAB PO SCH (08:18)
[2017-08-16] MEDS: DULoxetine 30 MG CAP PO SCH (08:18)
[2017-08-16] MEDS: lamoTRIgine 100 MG TAB PO SCH (08:18)
[2017-08-16] MEDS: FAMOTIDINE 20 MG TAB PO SCH (08:18)
[2017-08-16] MEDS: levETIRAcetam 500 MG TAB PO SCH (08:18)
[2017-08-16] MEDS: ENOXAPARIN 40 MG/0.4 ML SYR SC SCH (08:19)
[2017-08-16] MEDS: SENNOSIDES/DOCUSATE SODIUM TAB PO SCH (08:19)
[2017-08-16] MEDS: POLYETHYLENE GLYCOL 3350 17 GM PKT PO SCH (08:20)
--- NOTE | 2017-08-16 10:45 | PDIAF ---
- Diagnosis Diagnosis: s/p L3-S1 TLIF Code Status: Full Code - Medication Management Discharge Medications: Medications to Continue on Transfer DULoxetine [Cymbalta 30 MG (*)] 30 mg PO BID 06/08/16 [Last Taken 08/12/17] Herbals/Supplements -Info Only 1 ea PO DAILY 06/08/16 [Last Taken 08/05/17] levETIRAcetam [Keppra Xr] 1,000 mg PO DAILY 09/03/16 [Last Taken 08/12/17] Ascorbic Acid [Vitamin C 500 mg (*)] 1,000 mg PO DAILY 07/15/17 [Last Taken 06/14] Docusate Sodium [Stool Softener] 50 mg PO HS 07/15/17 [Last Taken 08/10/17] Multivitamin with Minerals [Multiple Vitamin] 1 each PO DAILY 07/15/17 [Last Taken 08/05/17] Gill-3 Fatty Acids [Fish Oil 1000 mg (*)] 1,000 mg PO DAILY 07/15/17 [Last Taken 08/05/17] lamoTRIgine [LamICTAL 100 MG (*)] 100 mg PO DAILY 07/15/17 [Last Taken 08/12/17] levETIRACETAM [KEPPRA XR 500 mg] 500 mg PO HS 07/15/17 [Last Taken 08/12/17] traMADol [Ultram 50 mg (*)] 50 mg PO BID@16,21 PRN 07/15/17 [Last Taken 08/08/17 ] Enoxaparin [Lovenox 40 MG (*)] 40 mg SC DAILY #7 syr 08/16/17 [Last Taken Unknown] Methocarbamol [Robaxin 750 mg (*)] 750 mg PO QID PRN #60 tab 08/16/17 [Last Taken Unknown] Sennosides/Docusate Sodium [Senokot-S] 1 - 2 tab PO BID #14 tab 08/16/17 [Last Taken Unknown] oxyCODONE IR [Oxycodone Ir (*)] 5 - 10 mg PO Q4HRS PRN #90 tab 08/16/17 [Last Taken Unknown] Photo Engraver Antibiotics: none Discharge Medications: Refer to the Discharge Home Medication list for PRN reason. PICC Care - Routine: N/A - Orders Services needed: Registered Nurse, Certified Summer Analyst, Master Sign Fabricator , Physical Therapy, Occupational Therapy Oxygen: to keep O2 sat greater than 90% Diet Recommendation: no restrictions on diet Diet Texture: Regular Texture Diet Wound Care Instructions: wound check in 2-[address] Rivera team - Follow Up Care Current Providers and Referrals: Geneva Morris MD [Primary Care Provider] - Atul Jordan MD [Medical Doctor] - (follow up in 2-3 weeks)
--- NOTE | 2017-08-16 12:09 | ASMTCMCOM ---
CM Note CM Note Notes: Pt is medically stable for d/c to [facility] inpatient rehab. Pt requests wc van set up, [facility] will transport pt at 1300 (pt aware of payment needs). Orders will be obtained via [employer]. Date Signed: 08/16/2017 12:08 PM Electronically Signed By:ABDIFATAH Parish
--- NOTE | 2017-08-16 14:06 | ASDISCHSUM ---
Discharge Information Plan Status:Inpatient Rehab Medically Cleared to Leave: Discharge Date:08/16/2017 12:57 PM D/C Disposition:[facility] Acute ADT D/C Disposition:[facility] Facility Projected Discharge Date:08/16/2017 11:00 AM Transportation at D/C: Discharge Delay Reason: Follow-Up Date:08/16/2017 11:00 AM Discharge Slot: Final Diagnosis: Placement Information Referral Type:*Fdc/SNF Referral ID:[id number] Provider Name: Address 1: Phone Number: Address 2: Fax Number: City: Selection Factors: State: Referral Type:Rehabilitation Hospital Referral ID:[id number] Provider Name:[facility] Address 1:[address] [place] [address] Phone Number: Address 2: Fax Number: [facility]:[place] Selection Factors: State:[place] Patient Contact Information Contact Name:ALBACRISPIN Relationship:Daughter Address:[address] [place] [address] Work Phone: City:[place] Alternate Phone: State/Zip Code:[place] [address] Email: Financial Information Financial Class: Primary Plan Desc:MEDICARE INPATIENT Primary Plan Number:[id number] Secondary Plan Desc:[facility] Secondary Plan Number:[id number] Assessment Information [facility] CM Progress Note CM Note CM Note Notes: Spoke with Veronica Carlin regarding referral for pt to have inpatient rehab. Patient being considered for acceptance but no decision will be made until Wednesday. CM to follow. Date Signed: 08/13/2017 02:25 PM Electronically Signed By:Verenice Lewis RN [facility] CM Progress Note CM Note CM Note Notes: Met with patient to review discharge POC. Patient informed that [facility] inpatient rehab reviewing her status, alternate rehab discussed and patient chooses [facility]. Referal to [place] at [facility], patient accepted to facilty when medically able to discharge. PASRR complete and faxed to [facility]. If remains through will f/u with Veronica [facility] Rehab. CM to follow as needs arise. Date Signed: 08/13/2017 03:55 PM Electronically Signed By:Verenice Lewis RN [facility] CM Progress Note CM Note CM Note Notes: Pt is medically stable for d/c to [facility] inpatient rehab. Pt requests wc van set up, [facility] will transport pt at 1300 (pt aware of payment needs). Orders will be obtained via [employer]. Date Signed: 08/16/2017 12:08 PM Electronically Signed By:ABDIFATAH Parish Intervention Information Intervention Type:*IM-Signed Date of Service:08/13/2017 10:23 AM Patient Type:Inpatient Staff Member:Keli Graham Hours: Discipline: Severity: Comment: Intervention Type:*IM-Signed Date of Service:08/16/2017 11:59 AM Patient Type:Inpatient Staff Member:Keli Graham Hours: Discipline: Severity: Comment:
== END 2017-08-16 12:57 | DRG 460 ==
LOC: F3N 05:46
PROVIDERS: ADMIT Neurological Surgery; ATTEND Neurological Surgery
PROC: 0SG30AJ Fusion of Lumbosacral Joint with Interbody Fusion Device, Posterior Approach, Anterior Column, Open Approach (ICD-10-PCS; principal; 2017-08-12 07:15)
PROC: 0SG10AJ Fusion of 2 or more Lumbar Vertebral Joints with Interbody Fusion Device, Posterior Approach, Anterior Column, Open Approach (ICD-10-PCS; principal; 2017-08-12 07:15)
PROC: 0QB00ZZ Excision of Lumbar Vertebra, Open Approach (ICD-10-PCS; principal; 2017-08-12 07:15)
PROC: 01NB0ZZ Release Lumbar Nerve, Open Approach (ICD-10-PCS; principal; 2017-08-12 07:15)
DX: M48.06 Spinal stenosis, lumbar region (principal); M48.07 Spinal stenosis, lumbosacral region; M47.26 Other spondylosis with radiculopathy, lumbar region; M47.27 Other spondylosis with radiculopathy, lumbosacral region; M51.16 Intervertebral disc disorders with radiculopathy, lumbar region; M51.17 Intervertebral disc disorders with radiculopathy, lumbosacral region
CPT/HCPCS: 97116-GP; 97161-GP; 97166-GO; 97530-GP; 97535-GO; C1713; G8978-GP-CK; G8979-GP-CI; G8987-GO-CL; G8988-GO-CI; J0171; J0690; J1100; J1650; J2001; J2250; J2274; J2704; J3010; J7060

== ENCOUNTER 2017-08-16 12:52 | Inpatient (IN) | payer OTHER ==
--- NOTE | 2017-08-16 14:25 | PDOREHIP ---
Admission IRF-[facility] - Admission - 3 Day Assessment Period Admission Date/Day 1: 08/16/17 Day 2: 08/17/17 Day 3: 08/18/17 - Active Diagnoses Comorbidities and Co-existing Conditions at Admission: 33011. None of the Above - Skin Conditions Unhealed Pressure Ulcer (1 or more/Stage 1 or >)-Admission: 0. No
[2017-08-16] MEDS: METHOCARBAMOL 750 MG TAB PO PRN ×2 (14:27→20:23)
[2017-08-16] MEDS: oxyCODONE IR 5 MG TAB PO PRN ×3 (14:27→22:01)
--- NOTE | 2017-08-16 15:54 | GHP ---
[f rep st] HISTORY AND PHYSICAL POST ADMISSION PHYSICIAN EVALUATION AND REHABILITATION TREATMENT PLAN DATE OF ADMISSION: 08/16/2017 DATE OF EVALUATION: 08/16/2017. TIME OF EVALUATION: 1415. REFERRING FACILITY: [facility]. REFERRING PHYSICIAN: Atul Jordan MD IMPAIRMENT GROUP: 8.9. DATE OF ONSET: 04/29/2016. REHABLITATION DIAGNOSIS: Debility status post lumbar surgery. ETIOLOGIC DIAGNOSIS: Other orthopedic. DATE OF SURGERY: 08/12/2017. HISTORY OF PRESENT ILLNESS: This patient is a 72-year-old woman with an 18- month history of low back pain and left lower extremity radicular pain. Additionally, she had bilateral lower extremity weakness. She had physical therapy as well as steroid injections, and her condition worsened until finally she needed surgery. She underwent a lumbar laminectomy at the L3 to L5 level, total lumbar interbody fusion at the L3 to S1 levels, and L3 to S1 posterior fusion to correct lumbar spondylosis and severe spinal stenosis. Postoperatively, she has had pain, constipation, and anterior thigh numbness. She presently complains of pain to the right of her surgery site with some radiation toward the buttocks. Her previous radiating pain, which happened spasmodically, is no longer present. She denies muscle spasms. STUDIES AND LABS: There was a CBC drawn several days before hospitalization, which was normal. She had a lumbar spine x-ray on 08/13/2017, which confirmed instrument placement with intact hardware. She was participating in therapies and appropriate for inpatient rehabilitation. PRECAUTIONS: She has seizure precautions, and she has orthopedic spine precautions. ACTIVE COMORBIDITIES: There are no active tier 1, tier 2, or tier 3 comorbidities. PAST MEDICAL HISTORY: 1. Seizure disorder since childhood with recurrence in the last several years. She had extensive workup for cryptogenic syncope before the diagnosis was clarified as recurrent seizures. She reports her last seizure was about a year ago. 2. Peripheral neuropathy. PAST SURGICAL HISTORY: She has had steroid injections for her back pain. Otherwise, she denies any history of surgeries. PRE-HOSPITAL MEDICATIONS: 1. Lamotrigine 100 mg p.o. daily. 2. Levetiracetam XR 500 mg p.o. q.h.s. and 1000 mg p.o. daily. 3. Duloxetine 30 mg p.o. b.i.d. 4. Multivitamin daily. 5. Augusta-3 fatty acids 1000 mg daily. 6. Tramadol 50 mg b.i.d. ADMISSION MEDICATIONS: 1. Duloxetine 30 mg p.o. b.i.d. 2. Levetiracetam 1000 mg p.o. q.a.m. and 500 mg q.p.m. 3. Ascorbic acid 1000 mg p.o. daily. 4. Multivitamin daily. 5. Augusta-3 fatty acids 1000 mg p.o. daily. 6. Lamotrigine 100 mg p.o. daily. 7. Tramadol 50 mg p.o. p.r.n. 8. Enoxaparin 40 mg subcutaneous daily. 9. Methocarbamol 750 mg p.o. four times daily p.r.n. 10. Senna/docusate 1-2 tabs p.o. b.i.d. 11. Oxycodone 5-10 mg q.4 hours p.r.n. ALLERGIES: There are no known drug allergies. FAMILY HISTORY: Noncontributory. PSYCHOSOCIAL HISTORY: She lives alone. 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 She is a nonsmoker. She has 4 steps to enter her home and then 8 steps from the landing to the main living level. REVIEW OF SYSTEMS: She currently is experiencing spasms of pain which are quite severe. She reports she has been unable to sleep. She has done some ambulating for short distances, but she gets pain with activity. Bowels have been moving; however, she needed lactulose as well as an enema over recent days. She has no cough or dyspnea. There is no nausea or vomiting. There is no dysuria or urinary frequency. She lacks sensation bilaterally in her feet. She feels thirsty and has somewhat of a dry mouth. Other than that, a 10-point review of systems is negative. PHYSICAL EXAM: VITALS: Blood pressure is 100/48, heart rate is 80, respiratory rate is 14, oxygen saturation is 97% on room air. Temperature is 36.7 degrees centigrade. Her weight is 62.8 kg for a body mass index of 25.3. GENERAL: This is a well-nourished, well-developed woman, appears her chronologic age, cooperative and in no acute distress. HEENT: Extraocular movements are intact. Pupils are equal, round, and reactive to light. Mucous membranes are moist. Dentition is in good condition. She has a somewhat crowded airway, Mallampati class 2. NECK: Supple. HEART: Regular rate and rhythm with no murmurs, rubs, or gallops. LUNGS: Clear to auscultation bilaterally. ABDOMEN: Soft, nontender, nondistended with normoactive bowel sounds and no hepatosplenomegaly. EXTREMITIES: There is no cyanosis, clubbing , or edema. Radial pulse and dorsalis pedis pulses are 2+ bilaterally. NEUROLOGIC: She is alert and oriented x3. There is normal strength bilaterally in the upper extremities. Lower extremities: Quadriceps are 5/5. Hip flexors are 4/5. Hamstrings are 4/5. Sensation is absent to light touch in her feet. Deep tendon reflexes are absent at the Achilles tendons and are 2 + bilaterally at the biceps tendons. CURRENT LEVEL OF FUNCTION: Per the pre-admission screen. Regarding diet, feeding, and swallowing, she was on a regular diet. Grooming was accomplished with standby assist and voice cues. Dressing was done with setup and standby assist for the upper and lower extremities. She needed minimal assistance to don her lumbar corset. Toileting required contact guard assist. She was noted to be continent of bladder and bowel. Bed mobility was accomplished with minimal assist and cues for spinal precautions. Transfers with minimal assist to contact guard assist. She used a front-wheeled walker. Balance required minimal assist to contact guard assist. Her endurance was fair. She was able to ambulate 150 feet with minimal assist to contact guard assist and voice cuing. She was unsteady with hips "giving in" and her right foot crossing the midline. She required multiple standing rests. IMPRESSION: This patient is a 72-year-old woman with gradually progressive pain and disability due to lumbar spinal stenosis, who underwent definitive surgery on 08/12/2017, with L3 to L5 lumbar laminectomy, L3 to S1 total lumbar interbody fusion, and L3 to S1 posterior fusion. She has come through surgery well, but has considerable pain. Her mobility is further complicated by peripheral neuropathy and loss of sensation in her feet. She has seizure disorder, which has been well controlled. She reports little efficacy in the past regarding nerve pain and adverse effects with the use of gabapentin; so options for treating nerve pain are somewhat limited by this. She is appropriate for inpatient rehabilitation where she will benefit from physical and occupational therapies to optimize mobility and activities of daily living. She will have nursing care for wound healing, skin integrity, fall risk, bowel and bladder, medication administration and medication education. She will have the care of a physician regarding pain management and seizure disorder. Her goal is to return home with home care versus outpatient services. For a safe discharge, she will need to achieve independence with bed mobility and grooming, modified independence for dressing, transfers and ambulation with the least restrictive device. She may continue to require supervision for bathing. It is likely that she will require assistance for household management and shopping. She will need to demonstrate the ability to maintain spinal precautions. She will need to have effective pain management. She will have therapy with physical therapy and occupational therapy for 90 minutes per day for each discipline on 5-7 days of the week. Her expected duration of stay is 5-7 days. It is anticipated that upon discharge she will continue to benefit from outpatient occupational therapy and physical therapy. ASSESSMENT AND PLAN: 1. Debility status post extensive lumbar surgery for spinal stenosis on 2016. Physical therapy and occupational therapy to optimize mobility and activities of daily living. 2. Postsurgical care. She is to maintain spinal precautions. She is to wear a lumbar corset when out of bed. 3. Pain control. We will increase frequency and dosing of oxycodone from 5-10 mg q.4 hours as needed to 5-20 mg q.3 hours as needed. Additionally, consider sustained-release morphine 15 mg at h.s. in order to achieve better control overnight. She was taking Tylenol in the hospital, and this will be scheduled as well at 1000 mg q.8 hours. She has found methocarbamol to be somewhat helpful, though she denies muscle spasms, so this will be left onboard. 4. Constipation. Continue senna/docusate but schedule 2 tablets b.i.d. Additionally, we will add polyethylene glycol 17 g daily. Bowel regimen will be adjusted based on response. 5. Prophylaxis. She is at risk for DVTs. Continue enoxaparin until her mobility improves considerably. Current Providers and Referrals: Geneva Morris MD [Primary Care Provider] - Atul Jordan MD [Medical Doctor] - (follow up in 2-3 weeks) /[id number]/MODL MTDD
[2017-08-16] MEDS: SENNOSIDES/DOCUSATE SODIUM TAB PO SCH (20:22)
[2017-08-16] MEDS: levETIRAcetam 500 MG TAB PO SCH (20:23)
[2017-08-16] MEDS: DULoxetine 30 MG CAP PO SCH (20:23)
[2017-08-16] MEDS ORDERED: LEVETIRACETAM 500 MG PO SCH (21:00)
[2017-08-16] MEDS ORDERED: SENNOSIDES/DOCUSATE SODIUM TAB PO SCH (21:00)
[2017-08-16] MEDS: ACETAMINOPHEN 500 MG TAB PO SCH (21:52)
[2017-08-17] MEDS: oxyCODONE IR 5 MG TAB PO PRN ×5 (05:36→22:28)
[2017-08-17] MEDS: ACETAMINOPHEN 500 MG TAB PO SCH ×3 (05:36→20:36)
[2017-08-17 07:35] LABS: % IMMATURE GRANULYOCYTES 0.3 % (0.0-1.1); ABSOLUTE IMMATURE GRANULOCYTES 0.02 10^3/uL (0.00-0.10); ADD DIFF? NO; ADD MORPH? NO; ADD SCAN? NO; ATYPICAL LYMPHOCYTE FLAG 10 (0-99); FRAGMENT RBC FLAG 0 (0-99); HEMATOCRIT 29.6 % (38.0-47.0); HEMOGLOBIN 9.9 g/dL (12.6-16.3); LEFT SHIFT FLG 0 (0-99); LIPEMIA HEMOLYSIS FLAG 80 (0-99); MEAN CELL HEMOGLOBIN 30.4 pg (27.9-34.1); MEAN CELL HEMOGLOBIN CONCENTR. 33.4 g/dL (32.4-36.7); MEAN CELL VOLUME 90.8 fL (81.5-99.8); MEAN PLATELET VOLUME 9.5 fL (8.7-11.7); PLATELET CLUMPS FLAG 0 (0-99); PLATELET COUNT 286 10^3/uL (150-400); RED BLOOD CELL COUNT 3.26 10^6/uL (4.18-5.33); RED CELL DISTRIBUTION WIDTH 13.6 % (11.5-15.2)
[2017-08-17] MEDS: METHOCARBAMOL 750 MG TAB PO PRN (07:39)
[2017-08-17 07:55] LABS: ANION GAP 8 mEq/L (8-16); CALCIUM 9.8 mg/dL (8.5-10.4); CARBON DIOXIDE 26 mEq/l (22-31); CHLORIDE 102 mEq/L (97-110); CREATININE 0.6 mg/dL (0.6-1.0); GLOMERULAR FILTRATION RATE > 60; GLUCOSE 90 mg/dL (70-100); POTASSIUM 3.9 mEq/L (3.5-5.2); SODIUM 136 mEq/L (134-144)
[2017-08-17] MEDS: ASCORBIC ACID 500 MG TAB PO SCH (08:37)
[2017-08-17] MEDS: ENOXAPARIN 40 MG/0.4 ML SYR SC SCH (08:37)
[2017-08-17] MEDS: DULoxetine 30 MG CAP PO SCH ×2 (08:37→20:33)
[2017-08-17] MEDS: levETIRAcetam 500 MG TAB PO SCH ×2 (08:38→20:33)
[2017-08-17] MEDS: MULTIVITAMINS 1 EACH TAB PO SCH (08:38)
[2017-08-17] MEDS: OMEGA-3 FATTY ACIDS 1,000 MG CAP PO SCH (08:38)
[2017-08-17] MEDS: lamoTRIgine 100 MG TAB PO SCH (08:38)
[2017-08-17] MEDS: POLYETHYLENE GLYCOL 3350 17 GM PKT PO SCH (08:39)
[2017-08-17] MEDS: SENNOSIDES/DOCUSATE SODIUM TAB PO SCH ×2 (08:39→20:33)
[2017-08-17] MEDS ORDERED: ENOXAPARIN 40 MG/0.4 ML SYR SC SCH (09:00)
[2017-08-17] MEDS ORDERED: Herbals/Supplements -Info Only PO SCH (09:00)
[2017-08-17] MEDS ORDERED: NON-FORMULARY NEW DRUG (Multivitamin With Minerals [Multiple Vitamin] 1 EACH) PO SCH (09:00)
[2017-08-17] MEDS ORDERED: LEVETIRACETAM 1000 MG PO SCH (09:00)
--- NOTE | 2017-08-17 11:28 | SOAPPROG ---
SOAP Progress Note Assessment/Plan: Assessment: 72-year-old female status post L3-L5 lumbar laminectomy, L3-S1 TLIF, and L3-S1 posterior fusion for lumbar spondylosis and severe spinal stenosis, on 08/12/2017 : * Debility status post extensive lumbar surgery for spinal stenosis on 2016. Physical therapy and occupational therapy to optimize mobility and activities of daily living. * Postsurgical care. She is to maintain spinal precautions. She is to wear a lumbar corset when out of bed. * Pain control. Continue oxycodone from 5-10 mg q.4 hours as needed to 5-20 mg q.3 hours as needed. Add sustained-release morphine 15 mg each morning for a stable daily level of pain control and to anticipate episodic spasmodic pain. Continue acetaminophen 1000 mg q.8 hours. She has found methocarbamol to be somewhat helpful, though she denies muscle spasms, so this will be left onboard. * Peripheral neuropathy. May complicate rehabilitation especially if there is a proprioceptive defect. * Constipation. Continue senna/docusate but schedule 2 tablets b.i.d. Additionally, we will add polyethylene glycol 17 g daily. Bowel regimen will be adjusted based on response. * Seizure disorder. Continue levetiracetam and lamotrigine. * Prophylaxis. She is at risk for DVTs. Continue enoxaparin until her mobility improves considerably. Current Providers and Referrals: Geneva Morris MD [Primary Care Provider] - Atul Jordan MD [Medical Doctor] - (follow up in 2-3 weeks, week of August 30) 08/17/17 11:55 Subjective: Slept okay and paint not interfere. No bowel movement x2 days. Had episode of pain while ambulating in the left buttock radiating down to the left leg and also in the right buttock. She had to sit down. Otherwise without complaints. No fevers, chills, cough, dyspnea Objective: Vital Signs Temp Pulse Resp BP Pulse Ox 37.1 C 80 16 101/54 L 92 08/16/17 19:41 08/16/17 19:41 08/16/17 19:41 08/16/17 19:41 08/16/17 19:41 Laboratory Results 08/17/17 06:00 08/17/17 06:00 08/16/17 08/17/17 08/18/17 05:59 05:59 05:59 Intake Total 300 358 Output Total 775 Balance -475 358 Physical Exam - Physical Exam General Appearance: WD/WN, alert, no apparent distress Respiratory: No respiratory distress, No accessory muscle use Skin: normal color, warm/dry Neuro/Psych: alert, normal mood/affect, oriented x 3 ICD10 Worksheet Patient Problems: Problems Problem Status Onset History of seizure Acute Syncope and collapse Acute
[2017-08-17] MEDS: morphINE SR 15 MG TAB PO SCH (12:14)
[2017-08-18] MEDS: ACETAMINOPHEN 500 MG TAB PO SCH ×3 (06:37→22:27)
[2017-08-18] MEDS: ENOXAPARIN 40 MG/0.4 ML SYR SC SCH (08:24)
[2017-08-18] MEDS: SENNOSIDES/DOCUSATE SODIUM TAB PO SCH ×2 (08:24→20:41)
[2017-08-18] MEDS: POLYETHYLENE GLYCOL 3350 17 GM PKT PO SCH (08:24)
[2017-08-18] MEDS: levETIRAcetam 500 MG TAB PO SCH ×2 (08:24→20:40)
[2017-08-18] MEDS: oxyCODONE IR 5 MG TAB PO PRN ×5 (08:25→22:27)
[2017-08-18] MEDS: MULTIVITAMINS 1 EACH TAB PO SCH (08:25)
[2017-08-18] MEDS: DULoxetine 30 MG CAP PO SCH ×2 (08:25→20:40)
[2017-08-18] MEDS: ASCORBIC ACID 500 MG TAB PO SCH (08:25)
[2017-08-18] MEDS: OMEGA-3 FATTY ACIDS 1,000 MG CAP PO SCH (08:25)
[2017-08-18] MEDS: morphINE SR 15 MG TAB PO SCH (08:25)
[2017-08-18] MEDS: lamoTRIgine 100 MG TAB PO SCH (08:25)
[2017-08-18] MEDS ORDERED: BISACODYL 10 MG SUPP PR PRN (09:42)
--- NOTE | 2017-08-18 14:38 | SOAPPROG ---
SOAP Progress Note Assessment/Plan: Assessment: 72-year-old female status post L3-L5 lumbar laminectomy, L3-S1 TLIF, and L3-S1 posterior fusion for lumbar spondylosis and severe spinal stenosis, on 08/12/2017 : * Debility status post extensive lumbar surgery for spinal stenosis on 2016. Initial functional independence measure is 87. She requires minimal assistance for bed mobility, and contact guard assist for transfers. She ambulated 185 feet with a front wheeled walker, contact guard to minimal assistance. She has requires contact to standby assist for activities of daily living. She is likely to need a walker after discharge. Physical therapy and occupational therapy to optimize mobility and activities of daily living. * Postsurgical care. She is to maintain spinal precautions. She is to wear a lumbar corset when out of bed. * Pain control. Continue oxycodone from 5-10 mg q.4 hours as needed to 5-20 mg q.3 hours as needed. Add sustained-release morphine 15 mg each morning for a stable daily level of pain control and to anticipate episodic spasmodic pain. Continue acetaminophen 1000 mg q.8 hours. She has found methocarbamol to be somewhat helpful, though she denies muscle spasms, so this will be left onboard. * Peripheral neuropathy. May complicate rehabilitation especially if there is a proprioceptive defect. * Constipation. Continue senna/docusate but schedule 2 tablets b.i.d. Additionally, we will add polyethylene glycol 17 g daily. Bowel regimen will be adjusted based on response. * Seizure disorder. Continue levetiracetam and lamotrigine. * Multiple supplements. Advised by her chiropractor. She was informed that she would need to bring the supplements and they would need to go through pharmacy to be dispensed by nurses. * Prophylaxis. She is at risk for DVTs. Continue enoxaparin until her mobility improves considerably. Attended staffing, 15 minutes. Discussed with case management, dietitian, nursing, PT, OT. She intends to return home alone and there are steps to climb in the house. Expect 7-10 days more of therapy to reach her goals. Discharge date set for 08/25/2017. Current Providers and Referrals: Geneva Morris MD [Primary Care Provider] - Atul Jordan MD [Medical Doctor] - (follow up in 2-3 weeks, week of August 30) 08/18/17 14:38 Subjective: Reports episode overnight in which she had involuntary movements starting in her feet and spreading upward into her arms and eventually her jaw. She thinks cell episode did not happen for longer than about 5 minutes. She did not lose consciousness and had no significant confusion along with a otherwise overall pain is better controlled and she is without acute complaints. Objective: Vital Signs Temp Pulse Resp BP Pulse Ox 37.0 C 76 14 93/50 L 90 L 08/18/17 07:22 08/18/17 07:22 08/18/17 07:22 08/18/17 07:22 08/18/17 07:22 Laboratory Results 08/17/17 06:00 08/17/17 06:00 08/17/17 08/18/17 08/19/17 05:59 05:59 05:59 Intake Total 300 1018 480 Output Total 775 1250 100 Balance -475 -232 380 - Time Spent With Patient Time Spent With Patient: Greater than 35 minutes floor time today including more than 50% of time in coordination of care during staffing, and counseling patient. Physical Exam - Physical Exam General Appearance: WD/WN, alert, no apparent distress Respiratory: No respiratory distress, No accessory muscle use Skin: normal color, warm/dry Neuro/Psych: alert, normal mood/affect, oriented x 3, abnormal gait (Short steps narrow base with ataxia of the left lower extremity moving slowly with physical therapy.), motor weakness (Left lower extremity) ICD10 Worksheet Patient Problems: Problems Problem Status Onset History of seizure Acute Syncope and collapse Acute
[2017-08-19] MEDS: ACETAMINOPHEN 500 MG TAB PO SCH ×3 (06:04→22:32)
[2017-08-19] MEDS: oxyCODONE IR 5 MG TAB PO PRN ×4 (09:12→22:32)
[2017-08-19] MEDS: morphINE SR 15 MG TAB PO SCH (09:13)
[2017-08-19] MEDS: SENNOSIDES/DOCUSATE SODIUM TAB PO SCH ×2 (09:36→20:32)
[2017-08-19] MEDS: ASCORBIC ACID 500 MG TAB PO SCH (09:36)
[2017-08-19] MEDS: MULTIVITAMINS 1 EACH TAB PO SCH (09:36)
[2017-08-19] MEDS: POLYETHYLENE GLYCOL 3350 17 GM PKT PO SCH (09:36)
[2017-08-19] MEDS: OMEGA-3 FATTY ACIDS 1,000 MG CAP PO SCH (09:36)
[2017-08-19] MEDS: lamoTRIgine 100 MG TAB PO SCH (09:36)
[2017-08-19] MEDS: levETIRAcetam 500 MG TAB PO SCH ×2 (09:37→20:32)
[2017-08-19] MEDS: DULoxetine 30 MG CAP PO SCH ×2 (09:37→20:32)
[2017-08-19] MEDS: ENOXAPARIN 40 MG/0.4 ML SYR SC SCH (09:37)
--- NOTE | 2017-08-19 13:47 | SOAPPROG ---
[facility] Progress Note Assessment/Plan: Assessment: 72-year-old female status post L3-L5 lumbar laminectomy, L3-S1 TLIF, and L3-S1 posterior fusion for lumbar spondylosis and severe spinal stenosis, on 08/12/2017 : * Debility status post extensive lumbar surgery for spinal stenosis on 2016. Initial functional independence measure is 87 on 08/18/17. She requires minimal assistance for bed mobility, and contact guard assist for transfers. She ambulated 185 feet with a front wheeled walker, contact guard to minimal assistance. She has requires contact to standby assist for activities of daily living. She is likely to need a walker after discharge. Physical therapy and occupational therapy to optimize mobility and activities of daily living. * Postsurgical care. She is to maintain spinal precautions. She is to wear a lumbar corset when out of bed. * Pain control. Continue oxycodone from 5-10 mg q.4 hours as needed to 5-20 mg q.3 hours as needed. Add sustained-release morphine 15 mg each morning for a stable daily level of pain control and to anticipate episodic spasmodic pain. Continue acetaminophen 1000 mg q.8 hours. She has found methocarbamol to be somewhat helpful, though she denies muscle spasms, so this will be left onboard. * Episodes of abnormal movement at night. Check labs regarding possible periodically limb movements of sleep though the what she describes would be quite atypical. Will get iron panel and TSH. * Peripheral neuropathy. May complicate rehabilitation especially if there is a proprioceptive defect. * Constipation. Continue senna/docusate but schedule 2 tablets b.i.d. Additionally, we will add polyethylene glycol 17 g daily. Bowel regimen will be adjusted based on response. * Seizure disorder. Continue levetiracetam and lamotrigine. * Multiple supplements. Advised by her chiropractor. She was informed that she would need to bring the supplements and they would need to go through pharmacy to be dispensed by nurses. * Prophylaxis. She is at risk for DVTs. Continue enoxaparin until her mobility improves considerably. She intends to return home alone and there are steps to climb in the house. Expect 7-10 days more of therapy to reach her goals. Discharge date set for . Current Providers and Referrals: Geneva Morris MD [Primary Care Provider] - Atul Jordan MD [Medical Doctor] - (follow up in 2-3 weeks, week of August 30) 08/18/17 14:38 08/19/17 13:45 Subjective: Reports another episode last night of awakening with involuntary movements of the legs which spread upwards and involved her arms and mouth. Symptoms lasted just a few minutes. No loss of consciousness and no postictal symptoms that she is aware of. No loss of bowel or bladder control. Overall she feels she is benefitting from the long-acting morphine during the day. Objective: Vital Signs Temp Pulse Resp BP Pulse Ox 36.8 C 80 14 99/51 L 91 L 08/19/17 07:20 08/19/17 07:20 08/19/17 07:20 08/19/17 07:20 08/19/17 07:20 Laboratory Results 08/17/17 06:00 08/17/17 06:00 08/18/17 08/19/17 08/20/17 05:59 05:59 05:59 Intake Total 1018 720 598 Output Total 1250 100 Balance -232 620 598 Physical Exam - Physical Exam General Appearance: WD/WN, alert, no apparent distress Respiratory: normal breath sounds, No crackles, No rhonchi, No wheezing Cardiac/Chest: regular rate, rhythm, No edema Skin: normal color, warm/dry Neuro/Psych: alert, normal mood/affect, oriented x 3, abnormal gait (CLose to normal gait, slow, with FWW.) ICD10 Worksheet Patient Problems: Problems Problem Status Onset History of seizure Acute Syncope and collapse Acute
[2017-08-19] MEDS: METHOCARBAMOL 750 MG TAB PO PRN (16:18)
[2017-08-20] MEDS: ACETAMINOPHEN 500 MG TAB PO SCH ×3 (06:05→20:43)
[2017-08-20] MEDS: oxyCODONE IR 5 MG TAB PO PRN ×6 (06:06→20:35)
[2017-08-20 08:07] LABS: % SATURATION 14 % (20-55); TOTAL IRON BINDING CAPACITY 257 ug/dL (260-490)
[2017-08-20] MEDS: ASCORBIC ACID 500 MG TAB PO SCH (08:10)
[2017-08-20] MEDS: LACTULOSE 20 GM/30 ML UDCUP PO PRN (08:10)
[2017-08-20] MEDS: lamoTRIgine 100 MG TAB PO SCH (08:11)
[2017-08-20] MEDS: DULoxetine 30 MG CAP PO SCH ×2 (08:11→20:35)
[2017-08-20] MEDS: levETIRAcetam 500 MG TAB PO SCH ×2 (08:11→20:40)
[2017-08-20] MEDS: MULTIVITAMINS 1 EACH TAB PO SCH (08:12)
[2017-08-20] MEDS: OMEGA-3 FATTY ACIDS 1,000 MG CAP PO SCH (08:12)
[2017-08-20] MEDS: POLYETHYLENE GLYCOL 3350 17 GM PKT PO SCH (08:12)
[2017-08-20] MEDS: SENNOSIDES/DOCUSATE SODIUM TAB PO SCH ×2 (08:12→20:36)
[2017-08-20] MEDS: morphINE SR 15 MG TAB PO SCH (08:12)
[2017-08-20] MEDS: ENOXAPARIN 40 MG/0.4 ML SYR SC SCH (08:40)
[2017-08-20] MEDS ORDERED: [UNRECOGNIZED DRUG - OTHER] PO SCH (09:00)
--- NOTE | 2017-08-20 09:58 | SOAPPROG ---
[facility] Progress Note Assessment/Plan: Assessment: 72-year-old female status post L3-L5 lumbar laminectomy, L3-S1 TLIF, and L3-S1 posterior fusion for lumbar spondylosis and severe spinal stenosis, on 08/12/2017 : * Debility status post extensive lumbar surgery for spinal stenosis on 2016. Initial functional independence measure is 87 on 08/18/17. She requires minimal assistance for bed mobility, and contact guard assist for transfers. She ambulated 185 feet with a front wheeled walker, contact guard to minimal assistance, with marked improvement noted on 08/20/2017. She has requires contact to standby assist for activities of daily living. She may need a walker after discharge. Physical therapy and occupational therapy to optimize mobility and activities of daily living. * Postsurgical care. She is to maintain spinal precautions. She is to wear a lumbar corset when out of bed. * Pain control. Continue oxycodone from 5-10 mg q.4 hours as needed to 5-20 mg q.3 hours as needed. Added sustained-release morphine 15 mg on 08/17/2017, each morning for a stable daily level of pain control and to anticipate episodic spasmodic pain. Continue acetaminophen 1000 mg q.8 hours. She has found methocarbamol to be somewhat helpful, though she denies muscle spasms, so this will be left onboard. * Episodes of abnormal movement at night. TSH normal, for iron panel with iron deficiency. Will treat iron deficiency. It is conceivable that these episodes represent periodic limb movements of sleep which could improve with iron replacement. * Anemia. Postsurgical and iron deficient. Ferrous sulfate 325 mg p.o. q.day starting 08/20/2017 for 4 weeks. * Peripheral neuropathy. May complicate rehabilitation especially if there is a proprioceptive defect. * Constipation. Continue senna/docusate but schedule 2 tablets b.i.d. Additionally, we will add polyethylene glycol 17 g daily. Bowel regimen will be adjusted based on response. * Seizure disorder. Continue levetiracetam and lamotrigine. * Multiple supplements. Advised by her chiropractor. She was informed that she would need to bring the supplements and they would need to go through pharmacy to be dispensed by nurses. * Prophylaxis. She is at risk for DVTs. Continue enoxaparin until her mobility improves considerably. She intends to return home alone and there are steps to climb in the house. Expect 7-10 days more of therapy to reach her goals. Discharge date set for . Current Providers and Referrals: Geneva Morris MD [Primary Care Provider] - Atul Jordan MD [Medical Doctor] - (follow up in 2-3 weeks, week of August 30) 08/20/17 09:55 Subjective: No complaints. Pain is overall improved; when she gets spasms of pain she is surprised because she has forgotten about it. Sleeping well. No fevers, chills , cough, dyspnea. Objective: Vital Signs Temp Pulse Resp BP Pulse Ox 37.0 C 80 16 110/69 95 08/20/17 06:05 08/20/17 06:05 08/20/17 06:05 08/20/17 06:05 08/20/17 06:05 Laboratory Results 08/17/17 06:00 08/17/17 06:00 08/19/17 08/20/17 08/21/17 05:59 05:59 05:59 Intake Total 720 1428 300 Output Total 100 450 Balance 620 978 300 Physical Exam - Physical Exam General Appearance: WD/WN, alert, no apparent distress Respiratory: No respiratory distress, No accessory muscle use Skin: normal color, warm/dry Neuro/Psych: alert, normal mood/affect, oriented x 3, other (Ambulating Shanks accompanied by Physical therapy with no assistance, using tracking pole in right hand, normal stride length and step through pattern, slightly slow.) ICD10 Worksheet Patient Problems: Problems Problem Status Onset History of seizure Acute Syncope and collapse Acute
[2017-08-20] MEDS: METHOCARBAMOL 750 MG TAB PO PRN ×2 (10:07→15:02)
[2017-08-20] MEDS: FERROUS SULFATE 325 MG TAB PO SCH (11:09)
[2017-08-20] MEDS: [UNRECOGNIZED DRUG - OTHER] PO SCH (15:04)
[2017-08-20] MEDS: [UNRECOGNIZED DRUG - OTHER] PO SCH (20:38)
[2017-08-20] MEDS: [UNRECOGNIZED DRUG - OTHER] PO SCH (20:39)
[2017-08-20] MEDS: [UNRECOGNIZED DRUG - OTHER] PO SCH (20:40)
[2017-08-20] MEDS ORDERED: [UNRECOGNIZED DRUG - OTHER] PO SCH (21:00)
[2017-08-20] MEDS ORDERED: [UNRECOGNIZED DRUG - OTHER] PO SCH (21:00)
[2017-08-20] MEDS ORDERED: [UNRECOGNIZED DRUG - OTHER] PO SCH (21:00)
[2017-08-21] MEDS: ACETAMINOPHEN 500 MG TAB PO SCH ×3 (06:29→20:53)
[2017-08-21] MEDS: oxyCODONE IR 5 MG TAB PO PRN ×6 (07:11→22:25)
[2017-08-21] MEDS: ENOXAPARIN 40 MG/0.4 ML SYR SC SCH (07:12)
[2017-08-21] MEDS: ASCORBIC ACID 500 MG TAB PO SCH (09:02)
[2017-08-21] MEDS: DULoxetine 30 MG CAP PO SCH ×2 (09:03→20:55)
[2017-08-21] MEDS: FERROUS SULFATE 325 MG TAB PO SCH (09:03)
[2017-08-21] MEDS: [UNRECOGNIZED DRUG - OTHER] PO SCH (09:04)
[2017-08-21] MEDS: levETIRAcetam 500 MG TAB PO SCH ×2 (09:07→20:55)
[2017-08-21] MEDS: lamoTRIgine 100 MG TAB PO SCH (09:07)
[2017-08-21] MEDS: MULTIVITAMINS 1 EACH TAB PO SCH (09:08)
[2017-08-21] MEDS: morphINE SR 15 MG TAB PO SCH (09:08)
[2017-08-21] MEDS: OMEGA-3 FATTY ACIDS 1,000 MG CAP PO SCH (09:08)
[2017-08-21] MEDS: [UNRECOGNIZED DRUG - OTHER] PO SCH ×2 (09:09→20:55)
[2017-08-21] MEDS: [UNRECOGNIZED DRUG - OTHER] PO SCH ×2 (09:10→20:56)
[2017-08-21] MEDS: SENNOSIDES/DOCUSATE SODIUM TAB PO SCH ×2 (09:11→20:55)
[2017-08-21] MEDS: POLYETHYLENE GLYCOL 3350 17 GM PKT PO SCH (09:13)
--- NOTE | 2017-08-21 11:07 | SOAPPROG ---
SO[facility] Progress Note Assessment/Plan: Assessment: 72-year-old female S/P L3-L5 lumbar laminectomy, L3-S1 TLIF, and L3-S1 posterior fusion for lumbar spondylosis and severe spinal stenosis, 08/12/2017: * Debility status post extensive lumbar surgery for spinal stenosis on 2016. Initial functional independence measure is 87 on 08/18/17. improving toward SBA for most activities and mobility. Ambulating SBA with a trekking pole. Good progress toward modified independence. * Postsurgical care. Compliant with spinal precautions and lumbar corset when out of bed. * Pain control. Improved. Continue oxycodone from 5-10 mg q.4 hours as needed to 5-20 mg q.3 hours as needed. Added sustained-release morphine 15 mg on 2016, each morning for a stable daily level of pain control and to anticipate episodic spasmodic pain. Continue acetaminophen 1000 mg q.8 hours. She has found methocarbamol to be somewhat helpful, though she denies muscle spasms, so this will be left onboard. * Episodes of abnormal movement at night. TSH normal, for iron panel with iron deficiency. Will treat iron deficiency. It is conceivable that these episodes represent periodic limb movements of sleep which could improve with iron replacement. * Anemia. Postsurgical and iron deficient. Ferrous sulfate 325 mg p.o. q.day starting 08/20/2017 for 4 weeks. * Peripheral neuropathy. May complicate rehabilitation especially if there is a proprioceptive defect. * Constipation. Improved in last day. Continue senna/docusate schedule 2 tablets b.i.d., polyethylene glycol 17 g daily. Bowel regimen will be adjusted based on response. * Seizure disorder. Continue levetiracetam and lamotrigine. * Multiple supplements. Advised by her chiropractor. She was informed that she would need to bring the supplements and they would need to go through pharmacy to be dispensed by nurses. * Prophylaxis. She is at risk for DVTs. Continue enoxaparin until her mobility improves considerably. She intends to return home alone and there are steps to climb in the house. Expect 7-10 days more of therapy to reach her goals. Discharge date set for . Current Providers and Referrals: Geneva Morris MD [Primary Care Provider] - Atul Jordan MD [Medical Doctor] - (follow up in 2-3 weeks, week of August 30) Plan: Cont rehab teams current rehab treatment plan 08/21/17 11:02 Subjective: Inpatient to get home, yet compliant with treatment plan No new problems or C/O's No F/C/CP/SOB/N/V/D/C Objective: Vital Signs Temp Pulse Resp BP Pulse Ox 37.1 C 72 16 102/58 L 92 08/21/17 07:54 08/21/17 07:54 08/21/17 07:54 08/21/17 07:54 08/21/17 07:54 Laboratory Results 08/17/17 06:00 08/17/17 06:00 08/20/17 08/21/17 08/22/17 05:59 05:59 05:59 Intake Total 1428 1480 480 Output Total 450 500 Balance 978 980 480 Physical Exam - Physical Exam General Appearance: alert, no apparent distress Neck: supple Respiratory: lungs clear Skin: normal color, warm/dry Extremities: No pedal edema, No calf tenderness Neuro/Psych: alert, normal mood/affect, oriented x 3, abnormal gait, other (no acute changes) ICD10 Worksheet Patient Problems: Problems Problem Status Onset History of seizure Acute Syncope and collapse Acute
[2017-08-21] MEDS: [UNRECOGNIZED DRUG - OTHER] PO SCH (20:57)
[2017-08-22] MEDS: oxyCODONE IR 5 MG TAB PO PRN ×4 (04:57→21:51)
[2017-08-22] MEDS: ACETAMINOPHEN 500 MG TAB PO SCH ×3 (06:25→21:49)
[2017-08-22] MEDS: [UNRECOGNIZED DRUG - OTHER] PO SCH (09:06)
[2017-08-22] MEDS: POLYETHYLENE GLYCOL 3350 17 GM PKT PO SCH (09:06)
[2017-08-22] MEDS: ASCORBIC ACID 500 MG TAB PO SCH (09:06)
[2017-08-22] MEDS: lamoTRIgine 100 MG TAB PO SCH (09:07)
[2017-08-22] MEDS: FERROUS SULFATE 325 MG TAB PO SCH (09:07)
[2017-08-22] MEDS: ENOXAPARIN 40 MG/0.4 ML SYR SC SCH (09:07)
[2017-08-22] MEDS: DULoxetine 30 MG CAP PO SCH ×2 (09:07→20:20)
[2017-08-22] MEDS: levETIRAcetam 500 MG TAB PO SCH ×2 (09:07→20:19)
[2017-08-22] MEDS: OMEGA-3 FATTY ACIDS 1,000 MG CAP PO SCH (09:08)
[2017-08-22] MEDS: MULTIVITAMINS 1 EACH TAB PO SCH (09:08)
[2017-08-22] MEDS: morphINE SR 15 MG TAB PO SCH (09:08)
[2017-08-22] MEDS: [UNRECOGNIZED DRUG - OTHER] PO SCH ×2 (09:09→20:17)
[2017-08-22] MEDS: [UNRECOGNIZED DRUG - OTHER] PO SCH ×2 (09:09→20:18)
[2017-08-22] MEDS: SENNOSIDES/DOCUSATE SODIUM TAB PO SCH ×2 (09:10→20:16)
[2017-08-22] MEDS: LACTULOSE 20 GM/30 ML UDCUP PO PRN (13:04)
--- NOTE | 2017-08-22 13:36 | SOAPPROG ---
[facility] Progress Note Assessment/Plan: Assessment: 72-year-old female S/P L3-L5 lumbar laminectomy, L3-S1 TLIF, and L3-S1 posterior fusion for lumbar spondylosis and severe spinal stenosis, 08/12/2017: * Debility status post extensive lumbar surgery for spinal stenosis on 2016. Initial functional independence measure is 87 on 08/18/17. improving toward SBA for most activities and mobility. Ambulating SBA with a trekking pole. Good progress toward modified independence. * Postsurgical care. Compliant with spinal precautions and lumbar corset when out of bed. * Pain control. Improved. Continue oxycodone from 5-10 mg q.4 hours as needed to 5-20 mg q.3 hours as needed. Added sustained-release morphine 15 mg on 2016, each morning for a stable daily level of pain control and to anticipate episodic spasmodic pain. Continue acetaminophen 1000 mg q.8 hours. She has found methocarbamol to be somewhat helpful, though she denies muscle spasms, so this will be left onboard. * Episodes of abnormal movement at night. TSH normal, for iron panel with iron deficiency. Will treat iron deficiency. It is conceivable that these episodes represent periodic limb movements of sleep which could improve with iron replacement. * Anemia. Postsurgical and iron deficient. Ferrous sulfate 325 mg p.o. q.day starting 08/20/2017 for 4 weeks. * Peripheral neuropathy. May complicate rehabilitation especially if there is a proprioceptive defect. * Constipation. Improved. Continue senna/docusate schedule 2 tablets b.i.d., polyethylene glycol 17 g daily. Bowel regimen will be adjusted based on response. * Seizure disorder. Continue levetiracetam and lamotrigine. * Multiple supplements. Advised by her chiropractor. She was informed that she would need to bring the supplements and they would need to go through pharmacy to be dispensed by nurses. * Prophylaxis. She is at risk for DVTs. Continue enoxaparin until her mobility improves considerably. She intends to return home alone and there are steps to climb in the house. Expect 7-10 days more of therapy to reach her goals. Discharge date set for . Current Providers and Referrals: Geneva Morris MD [Primary Care Provider] - Atul Jordan MD [Medical Doctor] - (follow up in 2-3 weeks, week of August 30) Plan: Cont rehab teams current rehab treatment plan 08/22/17 13:35 Subjective: No new problems or C/O's Objective: Vital Signs Temp Pulse Resp BP Pulse Ox 36.3 C 73 16 109/53 L 93 08/22/17 06:32 08/22/17 06:32 08/22/17 06:32 08/22/17 06:32 08/22/17 06:32 Laboratory Results 08/17/17 06:00 08/17/17 06:00 08/21/17 08/22/17 08/23/17 05:59 05:59 05:59 Intake Total 1480 1120 120 Output Total 500 Balance 980 1120 120 Physical Exam - Physical Exam General Appearance: alert, no apparent distress Neck: supple Respiratory: lungs clear Cardiac/Chest: regular rate, rhythm Skin: normal color, warm/dry Extremities: No pedal edema, No calf tenderness Neuro/Psych: alert, normal mood/affect, oriented x 3, abnormal gait, other (no acute changes) ICD10 Worksheet Patient Problems: Problems Problem Status Onset History of seizure Acute Syncope and collapse Acute
[2017-08-22] MEDS: METHOCARBAMOL 750 MG TAB PO PRN (16:33)
[2017-08-22] MEDS: [UNRECOGNIZED DRUG - OTHER] PO SCH (20:19)
[2017-08-23] MEDS: ACETAMINOPHEN 500 MG TAB PO SCH ×3 (06:27→21:16)
[2017-08-23] MEDS ORDERED: levETIRAcetam 250 MG TAB PO ONE (08:45)
[2017-08-23] MEDS: ASCORBIC ACID 500 MG TAB PO SCH (08:48)
[2017-08-23] MEDS: OMEGA-3 FATTY ACIDS 1,000 MG CAP PO SCH (08:48)
[2017-08-23] MEDS: DULoxetine 30 MG CAP PO SCH ×2 (08:48→21:16)
[2017-08-23] MEDS: lamoTRIgine 100 MG TAB PO SCH (08:48)
[2017-08-23] MEDS: morphINE SR 15 MG TAB PO SCH (08:48)
[2017-08-23] MEDS: FERROUS SULFATE 325 MG TAB PO SCH (08:48)
[2017-08-23] MEDS: MULTIVITAMINS 1 EACH TAB PO SCH (08:48)
[2017-08-23] MEDS: [UNRECOGNIZED DRUG - OTHER] PO SCH (08:49)
[2017-08-23] MEDS: POLYETHYLENE GLYCOL 3350 17 GM PKT PO SCH (08:49)
[2017-08-23] MEDS: [UNRECOGNIZED DRUG - OTHER] PO SCH ×2 (08:49→21:17)
[2017-08-23] MEDS: [UNRECOGNIZED DRUG - OTHER] PO SCH ×2 (08:49→21:17)
[2017-08-23] MEDS: ENOXAPARIN 40 MG/0.4 ML SYR SC SCH (08:53)
[2017-08-23] MEDS: SENNOSIDES/DOCUSATE SODIUM TAB PO SCH ×2 (08:54→21:24)
[2017-08-23] MEDS: oxyCODONE IR 5 MG TAB PO PRN (09:05)
[2017-08-23] MEDS: levETIRAcetam 500 MG TAB PO SCH ×2 (10:47→21:16)
--- NOTE | 2017-08-23 12:56 | SOAPPROG ---
[facility] Progress Note Assessment/Plan: Assessment: 72-year-old female status post L3-L5 lumbar laminectomy, L3-S1 TLIF, and L3-S1 posterior fusion for lumbar spondylosis and severe spinal stenosis, on 08/12/2017 : * Debility status post extensive lumbar surgery for spinal stenosis on 2016. Initial functional independence measure is 87 on 08/18/17. She requires minimal assistance for bed mobility, and contact guard assist for transfers. She ambulated 185 feet with a front wheeled walker, contact guard to minimal assistance, with marked improvement noted on 07/31/2017; walked 200'X 4 with trekking pole. She has requires contact to standby assist for activities of daily living. Continue physical therapy and occupational therapy to optimize mobility and activities of daily living. * Postsurgical care. She is to maintain spinal precautions. She is to wear a lumbar corset when out of bed. * Pain control. Continue oxycodone from 5-10 mg q.4 hours as needed to 5-20 mg q.3 hours as needed. Added sustained-release morphine 15 mg on 08/17/2017; discontinue 08/24/17. Continue acetaminophen 1000 mg q.8 hours. She has found methocarbamol to be somewhat helpful, though she denies muscle spasms, so this will be left onboard. * Episodes of abnormal movement at night. TSH normal, for iron panel with iron deficiency. Will treat iron deficiency. It is conceivable that these episodes represent periodic limb movements of sleep which could improve with iron replacement. * Anemia. Postsurgical and iron deficient. Ferrous sulfate 325 mg p.o. q.day starting 08/20/2017 for 4 weeks. * Peripheral neuropathy. May complicate rehabilitation especially if there is a proprioceptive defect. * Constipation. Continue senna/docusate but schedule 2 tablets b.i.d. Additionally, will add polyethylene glycol 17 g daily. Bowel regimen will be adjusted based on response. * Seizure disorder. Continue levetiracetam and lamotrigine. * Multiple supplements. Advised by her chiropractor. Cleared by pharmacy to be dispensed by nurses. * Prophylaxis. Mobility is much improved. Discontinue enoxaparin starting 08/24. She intends to return home alone and there are steps to climb in the house. Discharge date set for 08/25/2017. Current Providers and Referrals: Geneva Morris MD [Primary Care Provider] - Atul Jordan MD [Medical Doctor] - (follow up in 2-3 weeks, week of August 30) 08/23/17 12:53 Subjective: Reports she is feeling stronger and walking further and thinks that she will be ready to go home in 2 days. Pain is overall improved and she would like to discontinue the long-acting morphine. No fevers, chills, cough, dyspnea. No constipation. Objective: Vital Signs Temp Pulse Resp BP Pulse Ox 37.1 C 88 16 110/65 95 08/23/17 08:00 08/23/17 08:00 08/23/17 08:00 08/23/17 08:00 08/23/17 08:00 Laboratory Results 08/17/17 06:00 08/17/17 06:00 08/22/17 08/23/17 08/24/17 05:59 05:59 05:59 Intake Total 1120 800 360 Output Total 250 Balance 1120 550 360 Physical Exam - Physical Exam General Appearance: WD/WN, alert, no apparent distress Respiratory: normal breath sounds, No crackles, No rhonchi, No wheezing Cardiac/Chest: regular rate, rhythm, No edema Skin: normal color, warm/dry Neuro/Psych: no motor/sensory deficits, alert, normal mood/affect, oriented x 3 ICD10 Worksheet Patient Problems: Problems Problem Status Onset History of seizure Acute Syncope and collapse Acute
[2017-08-23] MEDS: HYDROCORTISONE 2.5% 30 GM CRTUBE TP SCH ×3 (17:30→22:01)
[2017-08-23] MEDS: [UNRECOGNIZED DRUG - OTHER] PO SCH (21:17)
[2017-08-24] MEDS: ACETAMINOPHEN 500 MG TAB PO SCH ×3 (05:57→21:55)
[2017-08-24] MEDS: POLYETHYLENE GLYCOL 3350 17 GM PKT PO SCH ×2 (08:38→08:39)
[2017-08-24] MEDS: [UNRECOGNIZED DRUG - OTHER] PO SCH (08:38)
[2017-08-24] MEDS: FERROUS SULFATE 325 MG TAB PO SCH (08:42)
[2017-08-24] MEDS: DULoxetine 30 MG CAP PO SCH ×2 (08:42→21:56)
[2017-08-24] MEDS: ASCORBIC ACID 500 MG TAB PO SCH (08:42)
[2017-08-24] MEDS: lamoTRIgine 100 MG TAB PO SCH (08:43)
[2017-08-24] MEDS: MULTIVITAMINS 1 EACH TAB PO SCH (08:43)
[2017-08-24] MEDS: OMEGA-3 FATTY ACIDS 1,000 MG CAP PO SCH (08:43)
[2017-08-24] MEDS: levETIRAcetam 500 MG TAB PO SCH ×2 (08:43→21:56)
[2017-08-24] MEDS: SENNOSIDES/DOCUSATE SODIUM TAB PO SCH ×2 (08:44→21:55)
[2017-08-24] MEDS: oxyCODONE IR 5 MG TAB PO PRN (08:44)
[2017-08-24] MEDS: [UNRECOGNIZED DRUG - OTHER] PO SCH ×2 (08:45→21:56)
[2017-08-24] MEDS: [UNRECOGNIZED DRUG - OTHER] PO SCH ×2 (08:45→21:56)
--- NOTE | 2017-08-24 09:35 | PDOREHIP ---
Admission [id number] - Admission - 3 Day Assessment Period Admission Date/Day 1: 08/16/17 Day 2: 08/17/17 Day 3: 08/18/17 Discharge [facility] - Discharge - 3 Day Assessment Period 2 Days Prior to Anticipated Discharge Date: 08/23/17 1 Day Prior to Anticipated Discharge Date: 08/24/17 Anticipated Discharge Date: 08/25/17 - Discharge Skin Conditions Unhealed Pressure Ulcer (1 or more/Stage 1 or >)-Discharge: 0. No
--- NOTE | 2017-08-24 09:55 | SOAPPROG ---
[facility] Progress Note Assessment/Plan: 72-year-old female status post L3-L5 lumbar laminectomy, L3-S1 TLIF, and L3-S1 posterior fusion for lumbar spondylosis and severe spinal stenosis, on 08/12/2017 : Today's update: Patient is doing very well in therapies, participating, largely modified independent or independent for most activities. She is interested in going home as soon as possible. No particular concerns from the patient, we discussed the need to be careful given impaired proprioception especially on uneven territory and train. Low suspicion for neurogenic bladder given her unchanged comma normal urination habits. We will check postvoid residual just to ensure complete emptying. Goal for discharge tomorrow, however that could be moved up to today pending discussion among therapists. Discharge planning today. Remainder of medical plan is relatively unchanged. A total of 40 minutes was spent on the floor in the care of the patient, the majority of which was spent in counseling and coordination of care regarding safe discharge planning. * Impaired mobility and self-care status post extensive lumbar surgery for spinal stenosis on 08/12/2017. Initial functional independence measure is 87 on 08/18/17. Working with PT, OT, ambulating with a tracking pole, mostly modified independence with some standby assistance for cuing. Plan will be to discharge home with caregiver assistance for the 1st couple of weeks. * Postsurgical care. She is to maintain spinal precautions. She is to wear a lumbar corset when out of bed. Independent to modified independent with donning and doffing her brace * Pain control. Continue oxycodone from 5-10 mg q.4 hours as needed to 5-20 mg q.3 hours as needed. Added sustained-release morphine 15 mg on 08/17/2017; discontinue 08/24/17. Continue acetaminophen 1000 mg q.8 hours. She has found methocarbamol to be somewhat helpful, though she denies muscle spasms, so this will be left onboard. * Episodes of abnormal movement at night. TSH normal, for iron panel with iron deficiency. Will treat iron deficiency. It is conceivable that these episodes represent periodic limb movements of sleep which could improve with iron replacement. * Anemia. Postsurgical and iron deficient. Ferrous sulfate 325 mg p.o. q.day starting 08/20/2017 for 4 weeks. * Peripheral neuropathy. Proprioception deficit may be from peripheral neuropathy, may be from spinal cord pathology. Unclear. Patient will need to be careful especially on uneven terrain * Constipation. Continue senna/docusate but schedule 2 tablets b.i.d. Additionally, will add polyethylene glycol 17 g daily. Bowel regimen will be adjusted based on response. * Seizure disorder. Continue levetiracetam and lamotrigine. * Multiple supplements. Advised by her chiropractor. Cleared by pharmacy to be dispensed by nurses. * Prophylaxis. Mobility is much improved. Discontinue enoxaparin starting 08/24. * High risk for neurogenic bladder: Checking postvoid residual to ensure complete emptying. She has had no incontinence of bowel or bladder She intends to return home alone and there are steps to climb in the house. Discharge date set for 08/25/2017, could be today depending on discussion with therapists. Current Providers and Referrals: Geneva Morris MD [Primary Care Provider] - Atul Jordan MD [Medical Doctor] - (follow up in 2-3 weeks, week of August 30) 08/24/17 09:52 08/24/17 09:56 Objective: Vital Signs Temp Pulse Resp BP Pulse Ox 36.8 C 80 16 118/75 93 08/24/17 06:07 08/24/17 06:07 08/24/17 06:07 08/24/17 06:07 08/24/17 06:07 Laboratory Results 08/17/17 06:00 08/17/17 06:00 08/23/17 08/24/17 08/25/17 05:59 05:59 05:59 Intake Total 800 840 898 Output Total 250 Balance 550 840 898 Physical Exam - Physical Exam General Appearance: WD/WN, alert, no apparent distress EENT: No scleral icterus (R), No scleral icterus (L) Respiratory: No respiratory distress, No accessory muscle use Cardiac/Chest: regular rate, rhythm, No edema Skin: normal color, warm/dry, No cyanosis Extremities: No pedal edema, No swelling Neuro/Psych: alert, normal mood/affect, oriented x 3 (5/5 ankle dorsiflexion on the right, 4/5 on the left. Impaired proprioception at the great toe on the left.) ICD10 Worksheet Patient Problems: Problems Problem Status Onset History of seizure Acute Syncope and collapse Acute
[2017-08-24] MEDS: HYDROCORTISONE 2.5% 30 GM CRTUBE TP SCH ×2 (10:14→22:09)
--- NOTE | 2017-08-24 10:58 | PDDCSUM ---
Discharge Summary Discharge Summary: Name: Mame Mojica Admission date: 08/16/2017 Discharge date: 08/24/2017 (anticipated) Discharging physician: Nicholas Solorio MD, Shiv Nava MD Admitting diagnosis: 8.9, other orthopedic, debility status post lumbar surgery Discharge diagnosis: 3.9, other neurological Comorbid diagnoses: Radiculopathy and spinal stenosis status post lumbar laminectomy L3-L5, total lumbar interbody fusion at L3-S1, and posterior fusion at L3-S1. Postoperative pain, postoperative constipation, anterior thigh numbness, episodes of abnormal movement during the night, anemia, peripheral neuropathy, seizure disorder, polypharmacy Consultations: physical therapy, occupational therapy, speech language pathology , social work, dietary Procedures: None Reason for admission: Please see the history and physical by Dr. Nava dated 08/16/2017 for full details, but briefly this is a 72-year-old woman with a history of low back pain and left lower extremity radicular pain who had bilateral lower extremity weakness premorbidly and underwent a lumbar laminectomy at the L3-L5 level as well as total lumbar interbody fusion at the L3-S1 levels and L3-S1 posterior fusion to correct lumbar spondylosis and severe spinal stenosis. Her acute care course was complicated by postoperative pain, constipation, and anterior thigh numbness. She had impairments in mobility and self-care consistent with the need for inpatient rehabilitation Rehabilitation course: Rehabilitation course was relatively uncomplicated. We continued pain control postsurgically, started on iron for iron deficiency anemia. This should continue until 08/20/2017, potentially a bit further. Her course was also complicated by peripheral neuropathy which likely contributed to a proprioceptive deficit that she exhibited. Unclear if that was present in any part before the surgery but per her description it likely was. Constipation resolved with bowel program, continued seizure disorder prophylaxis with levetiracetam and lamotrigine. From a rehabilitation perspective, she made good progress, and was ultimately discharged at a modified independent level for mobility and self-care. She occasionally needed some standby assistance and some cuing but she will be discharging with anesthetic assistant at home for the next couple of weeks. She was evaluated by speech therapy and found to be at the independent or modified independent level on admission. Discharge plan: Discharging home with assistance. She required outpatient physical and occupational therapy. Condition: Functional condition is listed above. She also appeared to be voiding and having bowel movements without issue or incontinence. Medications at discharge: Acetaminophen 1000 mg p.o. q.8 hours Ferrous sulfate 325 mg daily Hydrocortisone 2.5% cream twice daily Polyethylene glycol 17 g p.o. daily [place] 3 fatty acids Multi vitamin Ascorbic acid Miscellaneous supplements Duloxetine 30 mg p. o. twice daily Lamotrigine 100 mg p.o. daily Levetiracetam 500 mg p.o. at bedtime Levetiracetam 1000 mg p.o. daily Methocarbamol 750 mg p.o. 4 times a day as needed for spasms Oxycodone 5-10 mg p.o. q.4 hours p.r.n. for pain, 30 tabs 5 mg each Senna and docusate 1-2 tabs p. o. twice daily Pending studies: None Issues to be addressed at follow-up: Follow-up for iron deficiency anemia, ongoing seizure management with primary care or neurologist Follow up: Gneeva Morris MD [Primary Care Provider] - Atul Jordan MD [Medical Doctor] - (follow up in 2-3 weeks, week of August 30) Patient was seen on day of discharge, please see progress note from 08/24/2017 for those updates. It is anticipated that the patient will discharge on 2016, possibly 08/25/2017.
[2017-08-24] MEDS: [UNRECOGNIZED DRUG - OTHER] PO SCH (21:56)
[2017-08-25] MEDS: ACETAMINOPHEN 500 MG TAB PO SCH (05:47)
[2017-08-25 07:21] VITALS: RESP 18
[2017-08-25 07:28] VITALS: BP 91/62; PULSE 71; TEMP 98.1; O2SAT 95
[2017-08-25] MEDS: DULoxetine 30 MG CAP PO SCH (09:03)
[2017-08-25] MEDS: ASCORBIC ACID 500 MG TAB PO SCH (09:03)
[2017-08-25] MEDS: SENNOSIDES/DOCUSATE SODIUM TAB PO SCH ×2 (09:03→09:16)
[2017-08-25] MEDS: FERROUS SULFATE 325 MG TAB PO SCH (09:03)
[2017-08-25] MEDS: MULTIVITAMINS 1 EACH TAB PO SCH (09:03)
[2017-08-25] MEDS: levETIRAcetam 500 MG TAB PO SCH (09:03)
[2017-08-25] MEDS: OMEGA-3 FATTY ACIDS 1,000 MG CAP PO SCH (09:03)
[2017-08-25] MEDS: lamoTRIgine 100 MG TAB PO SCH (09:03)
[2017-08-25] MEDS: POLYETHYLENE GLYCOL 3350 17 GM PKT PO SCH (09:04)
[2017-08-25] MEDS: [UNRECOGNIZED DRUG - OTHER] PO SCH (09:05)
[2017-08-25] MEDS: [UNRECOGNIZED DRUG - OTHER] PO SCH (09:06)
[2017-08-25] MEDS: [UNRECOGNIZED DRUG - OTHER] PO SCH (09:07)
[2017-08-25] MEDS: HYDROCORTISONE 2.5% 30 GM CRTUBE TP SCH (09:15)
--- NOTE | 2017-08-25 12:39 | SOAPPROG ---
TONYAP Progress Note Assessment/Plan: Assessment: 72-year-old female status post L3-L5 lumbar laminectomy, L3-S1 TLIF, and L3-S1 posterior fusion for lumbar spondylosis and severe spinal stenosis, on 08/12/2017 : * Debility status post extensive lumbar surgery for spinal stenosis on 2016. Initial functional independence measure is 87 on 08/18/17, improved to 120 as of 08/24/2017 independent in her room as of 08/24/2017. Ambulated 600 feet with a trekking pole. Climbed and descended 18 stairs with standby assist. Independent with ADLs. Continue physical therapy and occupational therapy to optimize mobility and activities of daily living. * Postsurgical care. She is to maintain spinal precautions. She is to wear a lumbar corset when out of bed. * Pain control. Continue oxycodone from 5-10 mg q.4 hours as needed to 5-20 mg q.3 hours as needed. Added sustained-release morphine 15 mg on 08/17/2017; discontinue 08/24/17. Continue acetaminophen 1000 mg q.8 hours. She has found methocarbamol to be somewhat helpful, though she denies muscle spasms, so this will be left onboard. * Episodes of abnormal movement at night. TSH normal, for iron panel with iron deficiency. Will treat iron deficiency. It is conceivable that these episodes represent periodic limb movements of sleep which could improve with iron replacement. * Anemia. Postsurgical and iron deficient. Ferrous sulfate 325 mg p.o. q.day starting 08/20/2017 for 4 weeks. * Peripheral neuropathy. May complicate rehabilitation especially if there is a proprioceptive defect. * Constipation. Continue senna/docusate but schedule 2 tablets b.i.d. Additionally, will add polyethylene glycol 17 g daily. Bowel regimen will be adjusted based on response. * Seizure disorder. Continue levetiracetam and lamotrigine. * Multiple supplements. Advised by her chiropractor. Cleared by pharmacy to be dispensed by nurses. * Prophylaxis. Mobility is much improved. Discontinue enoxaparin starting 08/24. She intends to return home alone and there are steps to climb in the house. Discharge date set for 08/25/2017. Current Providers and Referrals: Geneva Morris MD [Primary Care Provider] - Atul Jordan MD [Medical Doctor] - (follow up in 2-3 weeks, week of August 30) 08/25/17 12:36 Subjective: No complaints. Going home today. Objective: Vital Signs Temp Pulse Resp BP Pulse Ox 36.7 C 71 18 91/62 L 95 08/25/17 07:43 08/25/17 07:43 08/25/17 07:43 08/25/17 07:43 08/25/17 07:43 Laboratory Results 08/17/17 06:00 08/17/17 06:00 08/24/17 08/25/17 08/26/17 05:59 05:59 05:59 Intake Total 840 1198 240 Output Total 300 Balance 840 898 240 Physical Exam - Physical Exam General Appearance: WD/WN, alert, no apparent distress Respiratory: No normal breath sounds, No respiratory distress Skin: normal color, warm/dry, other (Incision over low back C/D/I) Neuro/Psych: no motor/sensory deficits, alert, normal mood/affect, oriented x 3 , abnormal gait (Normal pace, step-through pattern, with trekking pole.) ICD10 Worksheet Patient Problems: Problems Problem Status Onset History of seizure Acute Syncope and collapse Acute
== END 2017-08-25 12:44 | disposition home health service (06) | DRG 950 ==
LOC: BREH 13:37
PROVIDERS: ADMIT Internal Medicine; ATTEND Internal Medicine
DX: Z48.89 Encounter for other specified surgical aftercare (principal); Z98.1 Arthrodesis status; K59.00 Constipation, unspecified; G40.909 Epilepsy, unspecified, not intractable, without status epilepticus; G62.9 Polyneuropathy, unspecified; G89.18 Other acute postprocedural pain; D50.9 Iron deficiency anemia, unspecified
CPT/HCPCS: 97110-GO; 97110-GP; 97112-GP; 97116-GP; 97161-GP; 97166-GO; 97530-GO; 97530-GP; 97535-GO; J1650

== ENCOUNTER → 2017-09-16 | Outpatient (CLI) | payer OTHER | LOC: FIMAGING 16:02 | PROVIDERS: ATTEND Physician Assistant | DX: M43.17 Spondylolisthesis, lumbosacral region (principal); M54.42 Lumbago with sciatica, left side; Z98.1 Arthrodesis status ==

== ENCOUNTER → 2017-11-30 | Outpatient (CLI) | payer OTHER | LOC: FIMAGING 09:45 | PROVIDERS: ATTEND Neurological Surgery | DX: M54.42 Lumbago with sciatica, left side (principal); M51.35 Other intervertebral disc degeneration, thoracolumbar region; M41.9 Scoliosis, unspecified; Z98.1 Arthrodesis status ==

== ENCOUNTER 2017-12-27 17:23 | Emergency (ER) | payer OTHER ==
--- NOTE | 2017-12-27 18:04 | EDPHY ---
H & P Time Seen by Provider: 12/27/17 17:42 HPI/ROS: CHIEF COMPLAINT: Dizziness, off balance HISTORY OF PRESENT ILLNESS: The patient is a 72-year-old female who states that she woke up at 7:30 a.m. this morning "pulling to the right. "She states that every time she tries to ambulate she moves to the right side. She has fallen into the wall and tripped over her cat because of this sense of moving to the right. She denies the room spinning. She has had no significant visual change. Patient states she woke with tingling in her right hand. This felt like her right hand was asleep. It is slowly improved throughout the day but still persists. She has no weakness. No neck pain. Patient states she had an episode of nausea and vomiting this morning but those symptoms have improved. Her symptoms are worse with movement. They are worse when she looks to the side. No recent fall or trauma. Patient went to see her physician and was sent to the emergency department. REVIEW OF SYSTEMS: My complete review of systems is negative except as mentioned in the HPI. Past Medical/Surgical History: Includes seizure disorder Past surgical history: Spine fusion, total abdominal hysterectomy Social history: The patient does not smoke Smoking Status: Never smoked Physical Exam: 36.6, 117/77, 70, 18, 95% on room air GENERAL: Well-appearing, in no acute distress, alert. HEENT: Eyes normal to inspection, normal pharynx, no signs of dehydration. No nystagmus. However, when the patient looks to the side she becomes extremely symptomatic. NECK: No thyromegaly, no lymphadenopathy, supple. RESPIRATORY: Clear to auscultation bilaterally, no rales, rhonchi or wheezing. CVS: Regular rate and rhythm, no rubs, murmurs, or gallops. ABDOMEN: Soft, nontender, nondistended, no organomegaly. BACK: Normal to inspection, no CVA tenderness. SKIN: Normal color, no rash, warm, dry. No pallor. EXTREMITIES: No pedal edema, no calf tenderness, no Homans sign or cords, no joint swelling. NEURO/PSYCH: Higher functions: Alert and Oriented x3. Normal speech and cognition. Normal mood and affect. Cranial nerves: Normal as tested. Cerebellar: Good finger to nose, good [id number], the patient has poor rapid alternating movement on the left upper extremity. Peripheral exam: Normal motor exam. Normal sensation. Normal reflexes. Constitutional: Initial Vital Signs Temperature (C) 36.6 C 12/27/17 17:25 Heart Rate 78 12/27/17 17:25 Respiratory Rate 18 12/27/17 17:25 Blood Pressure 117/77 12/27/17 17:25 O2 Sat (%) 95 12/27/17 17:25 O2 Delivery Mode Room Air Allergies/Adverse Reactions: No Known Allergies Allergy (Verified 12/27/17 17:24) Home Medications: Medication Instructions Recorded DULoxetine [Cymbalta 30 MG (*)] 30 mg PO 12/27/17 Meclizine HCl [Meclizine HCl 25 mg 25 mg PO TID #11 tab 12/27/17 (RX,OTC)] lamoTRIgine [LamICTAL 100 MG (*)] 100 mg PO 12/27/17 levETIRAcetam [Keppra 500 mg (*)] 500 mg PO 12/27/17 Medical Decision Making - Diagnostics Imaging Results: Imaging Impressions Head CT 12/27/17 18:07 Impression: 1. Normal CT brain without contrast. 2. No epidural or subdural hematoma. Findings and recommendations discussed with Emergency Department physician, Dr. Dayana Vides at 1910 hours on December 27, 2017. Final report concurs with initial preliminary interpretation. Brain MRI 12/27/17 18:08 Impression: 1. A few nonspecific hyperintense T2/FLAIR signal abnormalities in the white matter of bilateral cerebral hemispheres and brainstem. Differential diagnosis includes mild microvascular ischemic gliosis, versus less likely migraine- related sequela, atypical demyelinating disease, or postinfectious/post inflammatory sequela. 2. No acute infarct, acute hemorrhage, hydrocephalus or mass effect. 3. No evidence of cerebellar or brainstem infarcts or hemorrhage. Findings and recommendations discussed with Emergency Department physician, Dr. Dayana Vides at 1910 hours on December 27, 2017. Final report concurs with initial preliminary interpretation. ED Course/Re-evaluation: In the emergency department I discussed possible etiologies with the patient. I answered all her questions. Laboratory studies, EKG, head CT and MRI were ordered. Sinus rhythm at 66. Right axis deviation. No ST or T-wave abnormalities. The CBC was normal. Chemistry panel showed elevated potassium of 5.3. Head CT: Please refer the dictated report by Dr. Andry Herring. No acute disease noted. MRI of the brain: Please refer the dictated report by Dr. Andry Herring. There is some white matter disease but no visible stroke. No other abnormality. I discussed the results with the patient answered all her questions. She still was feeling dizzy. She is given meclizine 25 mg orally. On recheck the patient is feeling much better. Her symptoms have resolved. She has no focal neurologic deficits. The patient is able to ambulate without difficulty. She is given warnings prior to leaving. She will return with worsening symptoms. She was given a prescription for meclizine. Differential Diagnosis: My differential includes but is not limited to ischemic CVA, hemorrhagic CVA, dissection, aneurysm, mass, malignancy, peripheral vertigo, electrolyte abnormality, sugar abnormality, ACS, dysrhythmia - Data Points Laboratory Results: Laboratory Results 12/27/17 18:14 12/27/17 18:14 12/27/17 12/27/17 12/27/17 18:14 18:14 18:14 WBC 5.79 10^3/uL 10^3/uL (3.80-9.50) RBC 5.04 10^6/uL 10^6/uL (4.18-5.33) Hgb 14.7 g/dL g/dL (12.6-16.3) Hct 44.5 % % (38.0-47.0) MCV 88.3 fL fL (81.5-99.8) MCH 29.2 pg pg (27.9-34.1) MCHC 33.0 g/dL g/dL (32.4-36.7) RDW 16.1 % H % (11.5-15.2) Plt Count 289 10^3/uL 10^3/uL (150-400) MPV 9.5 fL fL (8.7-11.7) Neut % (Auto) 63.9 % % (39.3-74.2) Lymph % (Auto) 29.0 % % (15.0-45.0) [place] % (Auto) 5.7 % % (4.5-13.0) Eos % (Auto) 0.5 % L % (0.6-7.6) Baso % (Auto) 0.7 % % (0.3-1.7) Nucleat RBC Rel Count 0.0 % % (0.0-0.2) Absolute Neuts (auto) 3.70 10^3/uL 10^3/uL (1.70-6.50) Absolute Lymphs (auto) 1.68 10^3/uL 10^3/uL (1.00-3.00) Absolute Monos (auto) 0.33 10^3/uL 10^3/uL (0.30-0.80) Absolute Eos (auto) 0.03 10^3/uL 10^3/uL (0.03-0.40) Absolute Basos (auto) 0.04 10^3/uL 10^3/uL (0.02-0.10) Absolute Nucleated RBC 0.00 10^3/uL 10^3/uL (0-0.01) Immature Gran % 0.2 % % (0.0-1.1) Immature Gran # 0.01 10^3/uL 10^3/uL (0.00-0.10) PT 12.5 SEC SEC (12.0-15.0) INR 0.94 (0.83-1.16) APTT 26.1 SEC SEC (23.0-38.0) Sodium 140 mEq/L mEq/L (135-145) Potassium 5.3 mEq/L H mEq/L (3.5-5.2) Chloride 104 mEq/L mEq/L (97-110) Carbon Dioxide 22 mEq/l mEq/l (22-31) Anion Gap 14 mEq/L mEq/L (8-16) BUN 11 mg/dL mg/dL (7-23) Creatinine 0.6 mg/dL mg/dL (0.6-1.0) Estimated GFR > 60 Glucose 93 mg/dL mg/dL (70-100) Calcium 10.4 mg/dL mg/dL (8.5-10.4) Troponin I 0.014 ng/mL ng/mL (0.000-0.034) Specimen Hemolysis 202 Medications Given: Discontinued Medications Sodium Chloride (Ns) 500 mls @ 500 mls/hr IV EDNOW ONE PRN Reason: Protocol Stop: 12/27/17 19:06 Last Admin: 12/27/17 18:57 Dose: 500 mls Meclizine HCl (Meclizine Hcl) 25 mg PO EDNOW ONE Stop: 12/27/17 19:13 Last Admin: 12/27/17 19:18 Dose: 25 mg Departure - Departure Disposition: Home, Routine, Self-Care Clinical Impression: Dizziness Condition: Good Instructions: Dizziness (ED) Additional Instructions: Return with increasing incoordination, dizziness, nausea vomiting other concerns. Referrals: Geneva Morris MD [Primary Care Provider] - 5-7 days, call for appt. Prescriptions: Meclizine HCl [Meclizine HCl 25 mg (RX,OTC)] 25 mg PO TID #11 tab
[2017-12-27] MEDS ORDERED: NS 500 ML IV ONE (18:07)
[2017-12-27 18:40] LABS: PLATELET COUNT 289 10^3/uL (150-400)
--- NOTE | 2017-12-27 18:57 | CPEKG ---
Heart Rate: 64 RR Interval: 938 P-R Interval: 148 QRSD Interval: 80 QT Interval: 420 QTC Interval: 434 P [place]: 68 QRS [place]: 97 T Wave [place]: 25 EKG Severity - ABNORMAL ECG - EKG Impression: SINUS RHYTHM EKG Impression: DALIA, CONSIDER BIATRIAL ABNORMALITIES EKG Impression: RIGHT AXIS DEVIATION Electronically Signed By: Dayana Vides 27-Dec-2017 23:03:17
[2017-12-27 19:03] VITALS: RESP 16
[2017-12-27] MEDS ORDERED: MECLIZINE HCL 25 MG TAB PO ONE (19:12)
[2017-12-27 20:45] LABS: INR 0.94 (0.83-1.16); PROTIME(PATIENT) 12.5 SEC (12.0-15.0)
[2017-12-27 21:45] VITALS: BP 115/61; PULSE 57; TEMP 97.7; O2SAT 96
== END 2017-12-27 21:43 | disposition home or self-care (01) ==
DX: R42 Dizziness and giddiness (principal); E86.9 Volume depletion, unspecified

== ENCOUNTER → 2018-01-20 | Outpatient (CLI) | payer OTHER ==
[~2018-01-20] MED LIST changes: -GADOBUTROL 10 ML VIAL IVP ONE; +IOPAMIDOL (ISOVUE 370) 100 ML BTL IV ONE
== END ==
LOC: FIMAGING 10:16
PROVIDERS: ATTEND Psychiatry & Neurology Neurology
DX: R42 Dizziness and giddiness (principal); M47.892 Other spondylosis, cervical region
CPT/HCPCS: 70496; 70498; Q9967

== ENCOUNTER → 2018-02-18 | Outpatient (CLI) | payer OTHER | LOC: FIMAGING 11:17 | PROVIDERS: ATTEND Neurological Surgery | DX: Z98.1 Arthrodesis status (principal) ==

== ENCOUNTER → 2018-04-28 | Outpatient (CLI) | payer OTHER | LOC: BHFA 09:15 | PROVIDERS: ATTEND Internal Medicine Cardiovascular Disease | DX: I31.3 Pericardial effusion (noninflammatory) (principal) ==

== ENCOUNTER → 2018-04-29 | Outpatient (CLI) | payer OTHER | LOC: FIMAGING 11:14 | PROVIDERS: ATTEND Family Medicine | DX: M19.041 Primary osteoarthritis, right hand (principal); M19.042 Primary osteoarthritis, left hand ==

== ENCOUNTER → 2018-08-09 | Outpatient (CLI) | payer OTHER | LOC: FIMAGING 12:01 → EDSTATUS 12:04 | PROVIDERS: ATTEND Physician Assistant Surgical | DX: Z09 Encounter for follow-up examination after completed treatment for conditions other than malignant neoplasm (principal); S33.140A Subluxation of L4/L5 lumbar vertebra, initial encounter; M51.36 Other intervertebral disc degeneration, lumbar region; M51.35 Other intervertebral disc degeneration, thoracolumbar region; Z98.1 Arthrodesis status ==

== ENCOUNTER → 2018-09-13 | Outpatient (CLI) | payer OTHER | LOC: FIMAGING 10:19 | PROVIDERS: ATTEND Physician Assistant Surgical | DX: M51.36 Other intervertebral disc degeneration, lumbar region (principal) ==

== ENCOUNTER → 2019-03-30 | Outpatient (CLI) | payer OTHER | LOC: FIMAGING 13:06 | PROVIDERS: ATTEND Family Medicine | DX: Z12.31 Encounter for screening mammogram for malignant neoplasm of breast (principal); M25.812 Other specified joint disorders, left shoulder; M25.412 Effusion, left shoulder; M75.92 Shoulder lesion, unspecified, left shoulder; M89.38 Hypertrophy of bone, other site ==